=== PATIENT | female | born 1980 | race Caucasian/White ===

== ENCOUNTER → 2016-03-14 | Outpatient (REF) | payer OTHER | LOC: M SFHCLERA 14:02 | PROVIDERS: ATTEND Physician Assistant | DX: N39.0 Urinary tract infection, site not specified (principal) ==

== ENCOUNTER 2016-03-23 20:34 | Emergency (ER) | payer OTHER ==
[2016-03-23] MEDS ORDERED: ACETAMINOPHEN 325 MG TAB As Ordered ONE (21:04)
[2016-03-23] MEDS ORDERED: KETOROLAC 30 MG/ML VIAL (J1885) As Ordered ONE (21:04)
[2016-03-23 21:48] LABS: BASO % 0.1 % (0.0-1.0); EOS # 0.2 K/mm3 (0.0-0.50); EOS % 1.3 % (0.0-3.0); LARGE UNSTAINED CELL # 0.1 K/mm3 (0.0-0.4); LARGE UNSTAINED CELL % 0.5 % (0.0-4.0); LYMPH # 0.4 K/mm3 (1.5-4.5); LYMPH % 3.2 % (24.0-44.0); MEAN CORPUSCULAR HEMOGLOBIN 27.8 pg (27.0-33.0); MEAN CORPUSCULAR HGB CONC 34.4 g/dl (32.0-36.5); MONO # 0.4 K/mm3 (0.0-0.8); MONO % 2.8 % (0.0-5.0); NEUTROPHILS # 12.7 K/mm3 (1.8-7.7); NEUTROPHILS % 92.1 % (36.0-66.0); PLATELET COUNT, AUTOMATED 266 k/mm3 (150-450); RED CELL DISTRIBUTION WIDTH 12.9 % (11.5-14.5); WHITE BLOOD COUNT 13.8 K/mm3 (4.0-10.0)
[2016-03-23 21:58] LABS: ALBUMIN 3.9 GM/DL (3.2-5.2); ALBUMIN/GLOBULIN RATIO 0.93 (1.00-1.93); ALKALINE PHOSPHATASE 80 U/L (45-117); ALT/SGPT 23 U/L (12-78); ANION GAP 9 MEQ/L (8-16); AST/SGOT 11 U/L (15-37); BILIRUBIN,DIRECT 0.1 MG/DL (0.0-0.2); BILIRUBIN,TOTAL 0.7 MG/DL (0.2-1.0); BLOOD UREA NITROGEN 11 MG/DL (7-18); CARBON DIOXIDE LEVEL 29 MEQ/L (21-32); CHLORIDE LEVEL 99 MEQ/L (98-107); CREATININE FOR GFR 0.79 MG/DL (0.55-1.02); GLOMERULAR FILTRATION RATE > 60.0 (>60); GLUCOSE, FASTING 113 MG/DL (70-105); SODIUM LEVEL 137 MEQ/L (136-145); TOTAL PROTEIN 8.1 GM/DL (6.4-8.2)
[2016-03-23] MEDS ORDERED: POTASSIUM CHLORIDE 10 MEQ SR TABLET As Ordered ONE (23:09)
[2016-03-23] MEDS ORDERED: ISOVUE-370 76% 100ML VIAL (Q9967) As Ordered ONE (23:33)
--- NOTE | 2016-03-24 01:20 | REPUSA ---
CLINICAL HISTORY: Abdominal pain. TECHNIQUE: Multiple axial, sagittal and coronal CT images were obtained through the abdomen and pelvi s after administration of intravenous contrast material. COMMENTS: The liver is of uniform attenuation without mass or defect. There is no intra or extrahepatic biliary ductal dilatation. The spleen is normal. The gallbladder is within normal limits. The pancreas is of normal contour and attenuation characteristics. There is no evidence of adrenal mass. Both kidneys demonstrate prompt and equal nephrograms. The kidneys are normal in size, shape and conf iguration. There is no evidence of renal or ureteral mass. No renal or ureteral calculi are identifie d. There is no hydroureter or hydronephrosis. No evidence for appendicitis. There is no bowel wall thickening. No evidence for small or large jignesh l obstruction. Fluid filled mildly dilated small bowels in the pelvis. There is no evidence of intrinsic or extrinsic bladder mass. There is small amount of free pelvic flu id. 4.2 cm left ovarian cyst. Images of the lung bases show no evidence of pleural or parenchymal mass. There are no pleural effusi ons. The bony structures are free of lytic or blastic lesions. IMPRESSION: Left ovarian cyst. Fluid filled mildly dilated small bowel loops in the pelvis. Probably mild ileus versus developing en teritis. Mildly thickened bladder. Thank you for your kind referral of this patient.
--- NOTE | 2016-03-24 03:01 | EDDOCDS ---
Nurse's Notes [facility] Name: Camryn Dennis Age: 36 yrs Sex: Female : 1980 Arrival Date: 03/23/2016 Time: 20:34 Bed 1 Private MD: NO PRIMARY PHYSICIAN, . Diagnosis: Viral agents as the cause of diseases classified elsewhere Presentation: 03/23 20:39 Presenting complaint: Patient states: Racing heart began this morning. SOB. kmg1 Uncomfortable. Fever began this afternoon. Took naproxen this morning. Adult Sepsis Screening: The patient does not have new or worsening altered mentation. Patient's respiratory rate is less than 22. Systolic blood pressure is greater than 100. Patient has a qSOFA score of 0- Negative Sepsis Screen. Suicide/Homicide risk assessment- the patient denies having any suicidal and/or homicidal ideations and does not present with any other emotional, behavioral or mental health complaints. 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 Transition of care: patient was not received from another setting of care. 20:39 Acuity: OSCAR Level 3 [facility] 20:39 Method Of Arrival: Walkin/Carried/Asstd [facility] Triage Assessment: 20:44 General: Appears ill, Behavior is appropriate for age, cooperative, pleasant. Pain: [facility] Location: epigastric area Pain currently is 6 out of 10 on a pain scale. Quality of pain is described as. HIV screening NA for this visit Offered previously. Neurological: No deficits noted. Level of Consciousness is awake, alert. Cardiovascular: Reports racing heart. Respiratory: Reports shortness of breath. OPERATIONS MANAGER/COORDINATOR: 20:44 LMP 03/01/2016 [facility] Historical: - Allergies: No known drug Allergies; - Home Meds: 1. naproxen 500 mg Oral tab 1 tab 2 times per day (Last dose: 03/23/2016 09:00) 2. chlorthalidone 25 mg Oral tab 1 tab once daily (Last dose: 03/23/2016) 3. cetirizine 10 mg oral tab 1 tab once daily (Last dose: 03/23/2016) 4. Macrobid 100 mg Oral cap 1 cap every 12 hours took last dose of this med this morning for Bacterial Urinary Tract Infection (Last dose: 03/23/2016 09:00) - PMHx: Plantar Fasciitis; Hypertension; Obesity; - PSHx: Tubal ligation; Hernia repair- Umbilical; - Social history: Smoking status: Patient states was never smoker of tobacco. No barriers to communication noted, The patient speaks fluent Mosotho, Speaks appropriately for age. - Family history: Not pertinent. - : The pt / caregiver states he / she is not on anticoagulants. Home medication list is obtained from the patient. - Exposure Risk Screening:: None identified. Screenin:27 Screening information is obtained from the patient. Fall risk: No risks identified. js15 Assistance ADL's: requires no assistance with activities of daily living. Abuse/DV Screen: The patient / caregiver reports he/she is: not in a situation that causes fear, pain or injury. Nutritional screening: No deficits noted. Advance Directives: There is no active DNR order. home support is adequate. Assessment: 21:27 General: Appears uncomfortable, Behavior is anxious, cooperative. Pain: Location: js15 mid-sternal area and abdomen and epigastric area Pain currently is 7 out of 10 on a pain scale. Neurological: Level of Consciousness is awake, alert, obeys commands, Oriented to person, place, time. Cardiovascular: Capillary refill < 3 seconds Rhythm is sinus tachycardia. Respiratory: Airway is patent Respiratory effort is even, labored, Respiratory pattern is regular, symmetrical, tachypnea Breath sounds are clear bilaterally. Derm: Skin is dry, Skin is pink, Skin temperature is hot. 22:33 Reassessment: Patient appears in no apparent distress at this time. Pt resting on js15 stretcher, at bedside; respirations even and unlabored; skin pink, warm, dry. 23:30 Reassessment: Patient appears in no apparent distress at this time. Resting on js15 stretcher, eyes open. states pain 7/10 in epigastric area; respirations even and unlabored; skin pink, warm, dry, cardiac rhythm is sinus tach. 03/24 00:40 General: Appears in no apparent distress, Behavior is appropriate for age, cooperative. js15 Pain: Location: mid-sternal area and epigastric area Pain currently is 6 out of 10 on a pain scale. Neurological: Level of Consciousness is awake, alert, obeys commands, Oriented to person, place, time. Respiratory: Airway is patent Respiratory effort is even, unlabored, Respiratory pattern is regular, symmetrical. Derm: Skin is pink, warm & dry. 01:45 Reassessment: Patient appears in no apparent distress at this time. Pt resting on js15 stretcher with eyes closed; respirations even and unlabored; family at bedside; respirations even and unlabored; skin pink, warm, dry; will continue to monitor. 02:56 Reassessment: Patient appears in no apparent distress at this time. Patient states js15 feeling better. Patient states symptoms have improved. Pt sitting up on stretcher, awake and alert; respirations even and unlabored; skin pink, warm, dry. Vital Signs: 03/23 20:36 BP 153 / 87; Pulse 158; Resp 18 S; Temp 102.5(O); Pulse Ox 95% on R/A; Weight 127.01 kg gr2 (R); Height 5 ft. 6 in. (167.64 cm) (R); Pain 5/10; 20:52 BP 136 / 96 (auto/); js15 20:53 Pulse 149 MON; Pulse Ox 94% ; js15 21:15 BP 173 / 104 (auto/); js15 21:15 Pulse 136 MON; Pulse Ox 95% ; js15 21:18 BP 169 / 102 (auto/); js15 21:19 Pulse 131 MON; Pulse Ox 94% ; js15 21:39 BP 163 / 87 (auto/); js15 21:39 Pulse 129 MON; Pulse Ox 92% ; js15 21:44 Pulse 126 MON; Pulse Ox 92% ; js15 21:45 BP 160 / 86 (auto/); js15 21:57 Pulse 124 MON; Pulse Ox 93% ; js15 22:00 BP 161 / 86 (auto/); js15 22:02 Pulse 121 MON; Pulse Ox 93% ; js15 22:13 Pulse 117 MON; Pulse Ox 95% ; js15 22:15 Temp 99.5(O); js15 22:15 BP 165 / 81 (auto/); js15 22:15 Pulse 117 MON; Pulse Ox 95% ; js15 22:30 BP 165 / 89 (auto/); js15 22:31 Pulse 115 MON; Pulse Ox 94% ; js15 23:00 BP 151 / 77 (auto/); js15 23:00 Pulse 116 MON; Pulse Ox 96% ; js15 23:30 BP 182 / 90 (auto/); js15 23:30 Pulse 108 MON; Pulse Ox 96% ; js15 03/24 00:00 BP 155 / 83 (auto/); js15 00:11 Pulse 125 MON; Pulse Ox 86% ; js15 00:30 BP 171 / 102 (auto/); js15 00:30 Pulse 107 MON; Pulse Ox 96% ; js15 00:52 BP 140 / 86 (auto/); js15 00:52 Pulse 111 MON; Pulse Ox 97% ; js15 01:00 BP 148 / 94 (auto/); js15 01:00 Pulse 109 MON; Pulse Ox 97% ; js15 01:15 BP 152 / 93 (auto/); js15 01:15 Pulse 108 MON; Pulse Ox 97% ; js15 01:45 BP 124 / 65 (auto/); js15 01:45 Pulse 112 MON; Pulse Ox 97% ; js15 02:00 BP 126 / 91 (auto/); js15 02:00 Pulse 111 MON; Pulse Ox 98% ; js15 02:15 BP 136 / 89 (auto/); 15 02:15 Pulse 108 MON; Pulse Ox 99% ; 15 02:24 BP 153 / 85 LA Sitting (auto/reg); Pulse 107 MON; Resp 20 S; Temp 98.6(TE); Pulse Ox cln 99% on 2 lpm NC; Pain 05/10; 03/23 20:36 Body Mass Index 45.19 (127.01 kg, 167.64 cm) gr2 Vitals: 03/23 20:36 Log In Time: March 23, 2016 at 20:36. RN notified that patient meets Red Flag gr2 criteria. ED Course: 20:35 Patient visited by Wilma Barajas. gr2 20:35 NO PRIMARY PHYSICIAN, . is Private Physician. gr2 20:35 Patient moved to Waiting gr2 20:37 Patient visited by Wilma Barajas. gr2 20:37 Patient visited by Wilma Barajas. gr2 20:38 Patient moved to Pre RCE gr2 20:41 Triage Initiated kmg1 20:49 Patient moved to 1 kmg1 20:53 Patient visited by Tsering Hardy PCA. soo 20:53 Karlos De Souza DO is Attending Physician. cs11 20:53 Patient visited by Karlos De Souza DO. cs11 20:53 Pt greeted and oriented to ED. Patient advised of names of staff involved in care, soo location of call [place], wait times and NPO status. Accompanied by Significant Other, Patient has correct armband on for positive identification. Placed in gown. Bed in low position. Call light in reach. Side rails up X2. design engineer agricultural equipment on. Pulse ox on. NIBP on. 21:15 Inserted saline lock: 18 gauge in right antecubital area The patient tolerated the js15 procedure well. 21:27 The patient / caregiver is instructed regarding the plan of care and ED course. js15 21:57 Patient visited by Tsering Hardy PCA. soo 22:02 [facility] Payment Agreement was scanned into [employer] and attached to record. ks16 22:42 Patient visited by Annemarie Tolentino RN. js15 23:47 Patient visited by Tsering Hardy PCA. soo 03/24 00:49 Patient visited by Annemarie Tolentino RN. js15 01:34 CT ABD & PELVIS: IV Contrast Only Returned. EDMS 01:57 Patient visited by Tsering Hardy PCA. soo 02:25 Patient visited by Brina Scott PCA. cln 02:59 Discontinued IV lock intact, bleeding controlled, pressure dressing applied, No js15 redness/swelling at site. 02:59 No procedures done that require assistance. Administered Medications: 03/23 21:20 Drug: NS 0.9% 1000 ml [sodium chloride 0.9 % intravenous solution] Route: IV; Rate: js15 bolus; Site: right antecubital; 22:12 Follow up: IV Status: Completed infusion; IV Intake: 1000ml 21:20 Drug: Acetaminophen 975 mg [acetaminophen 325 mg tablet (3 tabs)] Route: PO; 21:20 Drug: ketorolac 30 mg [ketorolac 30 mg/mL (1 mL) injection solution (1 mL)] Route: IVP; Site: right antecubital; 22:00 Follow up: Response: No Adverse Reaction 22:12 Drug: NS 0.9% 1000 ml [sodium chloride 0.9 % intravenous solution] Route: IV; Rate: js15 bolus; Site: right antecubital; 03/24 00:00 Follow up: IV Status: Completed infusion; IV Intake: 1000ml 15 03/23 23:13 Drug: Potassium Chloride 40 mEq [potassium chloride ER 10 mEq tablet,extended release js15 (4 tabs)] Route: PO; Intake: 22:12 IV: 1000.00ml; Total: 1000.00ml. js15 03/24 00:00 IV: 1000.00ml; Total: 2000.00ml. js15 Order Results: Lab Order: Lactic Acid (Melton tube on ice); SPEC'M 03/23/16 21:15 Test: LACTIC ACID LEVEL, LACTATE; Value: 1.4; Range: 0.4-2.0; Units: MMOL/L; Status: F Lab Order: CBC with Diff; SPEC'M 03/23/16 21:15 Test: WHITE BLOOD COUNT; Value: 13.8; Range: 4.0-10.0; Abnormal: Above high normal; Units: K/mm3; Status: F Test: RED BLOOD COUNT; Value: 5.24; Range: 4.00-5.40; Units: M/mm3; Status: F Test: HEMOGLOBIN; Value: 14.6; Range: 12.0-16.0; Units: g/dl; Status: F Test: HEMATOCRIT; Value: 42.5; Range: 36.0-47.0; Units: %; Status: F Test: MEAN CORPUSCULAR VOLUME; Value: 81.0; Range: 80.0-96.0; Units: fl; Status: F Test: MEAN CORPUSCULAR HEMOGLOBIN; Value: 27.8; Range: 27.0-33.0; Units: pg; Status: F Test: MEAN CORPUSCULAR HGB CONC; Value: 34.4; Range: 32.0-36.5; Units: g/dl; Status: F Test: RED CELL DISTRIBUTION WIDTH; Value: 12.9; Range: 11.5-14.5; Units: %; Status: F Test: PLATELET COUNT, AUTOMATED; Value: 266; Range: 150-450; Units: k/mm3; Status: F Test: NEUTROPHILS %; Value: 92.1; Range: 36.0-66.0; Abnormal: Above high normal; Units: %; Status: F Test: LYMPH %; Value: 3.2; Range: 24.0-44.0; Abnormal: Below low normal; Units: %; Status: F Test: MONO %; Value: 2.8; Range: 0.0-5.0; Units: %; Status: F Test: EOS %; Value: 1.3; Range: 0.0-3.0; Units: %; Status: F Test: BASO %; Value: 0.1; Range: 0.0-1.0; Units: %; Status: F Test: LARGE UNSTAINED CELL %; Value: 0.5; Range: 0.0-4.0; Units: %; Status: F Test: NEUTROPHILS #; Value: 12.7; Range: 1.8-7.7; Abnormal: Above high normal; Units: K/mm3; Status: F Test: LYMPH #; Value: 0.4; Range: 1.5-4.5; Abnormal: Below low normal; Units: K/mm3; Status: F Test: MONO #; Value: 0.4; Range: 0.0-0.8; Units: K/mm3; Status: F Test: EOS #; Value: 0.2; Range: 0.0-0.50; Units: K/mm3; Status: F Test: BASO #; Value: 0.0; Range: 0.0-0.2; Units: K/mm3; Status: F Test: LARGE UNSTAINED CELL #; Value: 0.1; Range: 0.0-0.4; Units: K/mm3; Status: F Lab Order: MED Profile; SPEC'M 03/23/16 21:15 Test: GLUCOSE, FASTING; Value: 113; Range: 70-105; Abnormal: Above high normal; Units: MG/DL; Status: F Test: BLOOD UREA NITROGEN; Value: 11; Range: 7-18; Units: MG/DL; Status: F Test: CREATININE FOR GFR; Value: 0.79; Range: 0.55-1.02; Units: MG/DL; Status: F Test: GLOMERULAR FILTRATION RATE; Value: > 60.0; Range: >60; Status: F Test: SODIUM LEVEL; Value: 137; Range: 136-145; Units: MEQ/L; Status: F Test: POTASSIUM SERUM; Value: 3.0; Range: 3.5-5.1; Abnormal: Below low normal; Units: MEQ/L; Status: F Test: CHLORIDE LEVEL; Value: 99; Range: 98-107; Units: MEQ/L; Status: F Test: CARBON DIOXIDE LEVEL; Value: 29; Range: 21-32; Units: MEQ/L; Status: F Test: ANION GAP; Value: 9; Range: 8-16; Units: MEQ/L; Status: F Test: CALCIUM LEVEL; Value: 9.0; Range: 8.5-10.1; Units: MG/DL; Status: F Test Note: ; Units are mL/min/1.73 m2 Chronic Kidney Disease Staging per NKF: Stage I & II GFR >=60 Normal to Mildly Decreased Stage III GFR 30-59 Moderately Decreased Stage IV GFR 15-29 Severely Decreased Stage V GFR <15 Very Little GFR Left ESRD GFR <15 on CERTIFIED NOVELL ENGINEER Lab Order: Liver Profile; SPEC'M 03/23/16 21:15 Test: AST/SGOT; Value: 11; Range: 15-37; Abnormal: Below low normal; Units: U/L; Status: F Test: ALT/SGPT; Value: 23; Range: 12-78; Units: U/L; Status: F Test: ALKALINE PHOSPHATASE; Value: 80; Range: 45-117; Units: U/L; Status: F Test: BILIRUBIN,TOTAL; Value: 0.7; Range: 0.2-1.0; Units: MG/DL; Status: F Test: BILIRUBIN,DIRECT; Value: 0.1; Range: 0.0-0.2; Units: MG/DL; Status: F Test: TOTAL PROTEIN; Value: 8.1; Range: 6.4-8.2; Units: GM/DL; Status: F Test: ALBUMIN; Value: 3.9; Range: 3.2-5.2; Units: GM/DL; Status: F Test: ALBUMIN/GLOBULIN RATIO; Value: 0.93; Range: 1.00-1.93; Abnormal: Below low normal; Status: F Lab Order: Urinalysis; SPEC'M 03/23/16 22:44 Test: APPEARANCE, URINE; Value: CLEAR; Range: CLEAR; Status: F Test: COLOR, URINE; Value: YELLOW; Range: YELLOW; Status: F Test: PH,URINE; Value: 6.0; Range: 5.0-9.0; Units: UNITS; Status: F Test: SPECIFIC GRAVITY URINE AUTO; Value: 1.010; Range: 1.002-1.035; Status: F Test: PROTEIN, URINE AUTO; Value: NEGATIVE; Range: NEGATIVE; Units: mg/dL; Status: F Test: GLUCOSE, URINE (UA) AUTO; Value: NEGATIVE; Range: NEGATIVE; Units: mg/dL; Status: F Test: KETONE, URINE AUTO; Value: NEGATIVE; Range: NEGATIVE; Units: mg/dL; Status: F Test: UROBILINOGEN, URINE AUTO; Value: 0.2; Range: 0.0-2.0; Units: mg/dL; Status: F Test: BILIRUBIN, URINE AUTO; Value: NEGATIVE; Range: NEGATIVE; Status: F Test: NITRITE, URINE AUTO; Value: NEGATIVE; Range: NEGATIVE; Status: F Test: LEUKOCYTE ESTERASE, URINE AUTO; Value: NEGATIVE; Range: NEGATIVE; Status: F Test: BLOOD, URINE BLOOD; Value: NEGATIVE; Range: NEGATIVE; Status: F Test: WBC, URINE AUTO; Value: 0; Range: 0-3; Units: /HPF; Status: F Test: RBC, URINE AUTO; Value: 1; Range: 0-3; Units: /HPF; Status: F Test: BACTERIA, URINE AUTO; Value: NEGATIVE; Range: NEGATIVE; Status: F Test: SQUAMOUS EPITHELIAL CELL UR AU; Value: 0; Range: 0-6; Units: /HPF; Status: F Test: HYALINE CAST, URINE AUTO; Value: 0; Range: 0-1; Units: /LPF; Status: F Lab Order: -Influenza A&B Rapid Antigen - Nose; SPEC'M 03/23/16 21:17 Test: INFLUENZA A RAPID SCR by ICA; Value: INFLUENZA A RESULTS NEGATIVE; Status: F Test: INFLUENZA A RAPID SCR by ICA; Value: Comments:; Status: F Test: INFLUENZA B RAPID SCR by ICA; Value: INFLUENZA B RESULTS NEGATIVE; Status: F Test Note: ; The Influenza test is a direct rapid immunoassay for the qualitative detection of Influenza viral antigen. Cell culture (Viral Culture) testing should be considered to confirm NEGATIVE results and to assist in detecting other viruses that can provide similar clinical symptoms. Please contact the lab within 24 hours ([phone] if confirmatory testing is desired. Radiology Order: CT ABD & PELVIS: IV Contrast Only Test: CT ABD & PELVIS: IV Contrast Only REASON FOR EXAMINATION: Abdomen Pain; ; CLINICAL HISTORY: Abdominal pain.; TECHNIQUE: Multiple axial, sagittal and coronal CT images were obtained through the abdomen and pelvi; s after administration of intravenous contrast material.; COMMENTS:; The liver is of uniform attenuation without mass or defect. There is no intra or extrahepatic biliary; ductal dilatation. The spleen is normal. The gallbladder is within normal limits. The pancreas is of; normal contour and attenuation characteristics. There is no evidence of adrenal mass.; Both kidneys demonstrate prompt and equal nephrograms. The kidneys are normal in size, shape and conf; iguration. There is no evidence of renal or ureteral mass. No renal or ureteral calculi are identifie; d. There is no hydroureter or hydronephrosis.; No evidence for appendicitis. There is no bowel wall thickening. No evidence for small or large jignesh; l obstruction. Fluid filled mildly dilated small bowels in the pelvis.; There is no evidence of intrinsic or extrinsic bladder mass. There is small amount of free pelvic flu; id. 4.2 cm left ovarian cyst.; Images of the lung bases show no evidence of pleural or parenchymal mass. There are no pleural effusi; ons.; The bony structures are free of lytic or blastic lesions.; IMPRESSION:; Left ovarian cyst.; Fluid filled mildly dilated small bowel loops in the pelvis. Probably mild ileus versus developing en; teritis.; Mildly thickened bladder.; Thank you for your kind referral of this patient.; ; Outcome: 02:17 Discharge ordered by Provider. cs11 02:59 Discharge Assessment: Patient awake, alert and oriented x 3. No cognitive and/or js15 functional deficits noted. Patient verbalized understanding of disposition instructions. patient administered narcotics - no. The following High Risk Discharge criteria are identified: None. Discharged to home ambulatory, with significant other. Condition: stable. Condition: improved. Discharge instructions given to patient, Instructed on discharge instructions, follow up and referral plans. Demonstrated understanding of instructions, Pt was receptive of discharge instructions/ teaching. CT Study completed. Property sent home with patient. 03:01 Patient left the ED. js15 Signatures: Dispatcher [facility] EDOR Laurel Mireles, RN RN kmg1 Tsering Hardy, MEDICATION ADMINISTRATION PROFESSIONAL MEDICATION ADMINISTRATION PROFESSIONAL Karlos Samano DO cs11 Wilma Barajas gr2 Annemarie Tolentino,RN RN js15 Eliana Ortiz, Catarino Reg ks16 Tyler, Brina, MEDICATION ADMINISTRATION PROFESSIONAL MEDICATION ADMINISTRATION PROFESSIONAL cln THAOD
--- NOTE | 2016-03-24 03:01 | EDDOCDS ---
Physician Documentation [facility] Name: Camryn Dennis Age: 36 yrs Sex: Female : 1980 Arrival Date: 03/23/2016 Time: 20:34 Bed 1 Private MD: NO PRIMARY PHYSICIAN, . Disposition: 03/24/16 02:17 Discharged to Home/Self Care. Impression: Viral agents as the cause of diseases classified elsewhere. - Condition is Stable. - Medication Reconciliation, Local Pharmacy Hours form. - Follow up: Private Physician; When: Call to arrange an appointment; Reason: Recheck today's complaints. - Problem is new. - Symptoms have improved. Historical: - Allergies: No known drug Allergies; - Home Meds: 1. naproxen 500 mg Oral tab 1 tab 2 times per day (Last dose: 03/23/2016 09:00) 2. chlorthalidone 25 mg Oral tab 1 tab once daily (Last dose: 03/23/2016) 3. cetirizine 10 mg oral tab 1 tab once daily (Last dose: 03/23/2016) 4. Macrobid 100 mg Oral cap 1 cap every 12 hours took last dose of this med this morning for Bacterial Urinary Tract Infection (Last dose: 03/23/2016 09:00) - PMHx: Plantar Fasciitis; Hypertension; Obesity; - PSHx: Tubal ligation; Hernia repair- Umbilical; - Social history: Smoking status: Patient states was never smoker of tobacco. No barriers to communication noted, The patient speaks fluent Irish, Speaks appropriately for age. - Family history: Not pertinent. - : The pt / caregiver states he / she is not on anticoagulants. Home medication list is obtained from the patient. - Exposure Risk Screening:: None identified. 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 6 in. (167.64 cm) (R); Pain 5/10; 20:52 BP 136 / 96 (auto/); js15 20:53 Pulse 149 MON; Pulse Ox 94% ; js15 21:15 BP 173 / 104 (auto/); 15 21:15 Pulse 136 MON; Pulse Ox 95% ; js15 21:18 BP 169 / 102 (auto/); 15 21:19 Pulse 131 MON; Pulse Ox 94% ; 15 21:39 BP 163 / 87 (auto/); 15 21:39 Pulse 129 MON; Pulse Ox 92% ; 15 21:44 Pulse 126 MON; Pulse Ox 92% ; 15 21:45 BP 160 / 86 (auto/); 15 21:57 Pulse 124 MON; Pulse Ox 93% ; 15 22:00 BP 161 / 86 (auto/); 15 22:02 Pulse 121 MON; Pulse Ox 93% ; 15 22:13 Pulse 117 MON; Pulse Ox 95% ; 15 22:15 Temp 99.5(O); 15 22:15 BP 165 / 81 (auto/); 15 22:15 Pulse 117 MON; Pulse Ox 95% ; 22:30 BP 165 / 89 (auto/); 22:31 Pulse 115 MON; Pulse Ox 94% ; 15 23:00 BP 151 / 77 (auto/); 23:00 Pulse 116 MON; Pulse Ox 96% ; 23:30 BP 182 / 90 (auto/); 15 23:30 Pulse 108 MON; Pulse Ox 96% ; 03/24 00:00 BP 155 / 83 (auto/); 00:11 Pulse 125 MON; Pulse Ox 86% ; 15 00:30 BP 171 / 102 (auto/); 00:30 Pulse 107 MON; Pulse Ox 96% ; 00:52 BP 140 / 86 (auto/); 00:52 Pulse 111 MON; Pulse Ox 97% ; 15 01:00 BP 148 / 94 (auto/); 15 01:00 Pulse 109 MON; Pulse Ox 97% ; 15 01:15 BP 152 / 93 (auto/); 01:15 Pulse 108 MON; Pulse Ox 97% ; 01:45 BP 124 / 65 (auto/); 01:45 Pulse 112 MON; Pulse Ox 97% ; 15 02:00 BP 126 / 91 (auto/); 15 02:00 Pulse 111 MON; Pulse Ox 98% ; 02:15 BP 136 / 89 (auto/); js15 02:15 Pulse 108 MON; Pulse Ox 99% ; js15 02:24 BP 153 / 85 LA Sitting (auto/reg); Pulse 107 MON; Resp 20 S; Temp 98.6(TE); Pulse Ox cln 99% on 2 lpm NC; Pain 05/10; 03/23 20:36 Body Mass Index 45.19 (127.01 kg, 167.64 cm) gr2 MDM: 03/23 21:00 IV Saline Lock ordered. cs11 21:00 NS 0.9% 1000 ml IV at bolus once ordered. cs11 21:00 Acetaminophen Tablet 975 mg PO once ordered. cs11 21:00 -Blood Culture (Adults Only), peripheral from different site, or from device/port/PICC cs11 etc. if present ordered. 21:00 ketorolac 30 mg IVP once ordered. cs11 21:01 -Blood Culture Ordered. EDMS 21:01 Lactic Acid (Melton tube on ice) Ordered. EDMS 21:01 CBC with Diff Ordered. EDMS 21:01 MED Profile Ordered. EDMS 21:01 Liver Profile Ordered. EDMS 21:01 Urinalysis Ordered. EDMS 21:01 Urine Culture Ordered. EDMS 21:02 Chest, 2 View (pa\E\lat) Ordered. EDMS 21:05 -Blood Culture (Adults Only), peripheral from different site, or from device/port/PICC ml3 etc. if present complete. 21:06 BLOOD CULTURES Ordered. EDMS 21:08 -Influenza A&B Rapid Antigen - Nose Ordered. EDMS 21:55 CBC with Diff Reviewed. cs11 21:55 -Influenza A&B Rapid Antigen - Nose Reviewed. cs11 21:56 Vital Signs ordered. cs11 22:01 Financial registration complete. [email or web address] 22:02 [facility] Payment Agreement was scanned into sendwithus and attached to record. ks16 22:12 NS 0.9% 1000 ml IV at bolus once ordered. js15 22:20 MED Profile Reviewed. cs11 22:20 Liver Profile Reviewed. cs11 22:20 Lactic Acid (Melton tube on ice) Reviewed. cs11 22:20 Potassium Chloride Extended Release Tablet 40 mEq PO once ordered. cs11 23:09 Urinalysis Reviewed. cs11 23:14 CT ABD & PELVIS: IV Contrast Only Ordered. EDMS 03/24 02:15 CT ABD & PELVIS: IV Contrast Only Reviewed. cs11 Administered Medications: 03/23 21:20 Drug: NS 0.9% 1000 ml [sodium chloride 0.9 % intravenous solution] Route: IV; Rate: js15 bolus; Site: right antecubital; 22:12 Follow up: IV Status: Completed infusion; IV Intake: 1000ml js15 21:20 Drug: Acetaminophen 975 mg [acetaminophen 325 mg tablet (3 tabs)] Route: PO; js15 21:20 Drug: ketorolac 30 mg [ketorolac 30 mg/mL (1 mL) injection solution (1 mL)] Route: IVP; js15 Site: right antecubital; 22:00 Follow up: Response: No Adverse Reaction js15 22:12 Drug: NS 0.9% 1000 ml [sodium chloride 0.9 % intravenous solution] Route: IV; Rate: js15 bolus; Site: right antecubital; 03/24 00:00 Follow up: IV Status: Completed infusion; IV Intake: 1000ml js15 03/23 23:13 Drug: Potassium Chloride 40 mEq [potassium chloride ER 10 mEq tablet,extended release js15 (4 tabs)] Route: PO; Signatures: Dispatcher [employer] EDLaurel Coles, RN RN kmg1 Wojciech Flores, Patient Clerical Assistant Unit ml3 Karlos De Souza DO DO cs11 Annemarie TolentinoRN RN js15 Eliana Ortiz, Reg Reg ks16 The chart was reviewed and I authenticate all verbal orders and agree with the evaluation and treatment provided.Attachments: 22:02 [facility] Payment Agreement [email or web address] MTDD
--- NOTE | 2016-03-24 16:14 | REP ---
PA and lateral chest: There are no comparisons. The lung ruffin are clear. The cardiac size is normal The herber, mediastinum, and bony thorax are unremarkable. Impression: Negative PA and lateral chest. Signed by Declan Fierro MD 03/24/2016 04:04 P
--- NOTE | 2016-03-26 04:02 | EDDOCDS ---
Nurse's Notes [facility] Name: Camryn Dennis Age: 36 yrs Sex: Female : 1980 Arrival Date: 03/23/2016 Time: 20:34 Bed 1 Private MD: NO PRIMARY PHYSICIAN, . Diagnosis: Viral agents as the cause of diseases classified elsewhere Presentation: 03/23 20:39 Presenting complaint: Patient states: Racing heart began this morning. SOB. kmg1 Uncomfortable. Fever began this afternoon. Took naproxen this morning. Adult Sepsis Screening: The patient does not have new or worsening altered mentation. Patient's respiratory rate is less than 22. Systolic blood pressure is greater than 100. Patient has a qSOFA score of 0- Negative Sepsis Screen. Suicide/Homicide risk assessment- the patient denies having any suicidal and/or homicidal ideations and does not present with any other emotional, behavioral or mental health complaints. 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 Transition of care: patient was not received from another setting of care. 20:39 Acuity: OSCAR Level 3 [facility] [place] 20:39 Method Of Arrival: Walkin/Carried/Asstd [facility] [place] Triage Assessment: 20:44 General: Appears ill, Behavior is appropriate for age, cooperative, pleasant. Pain: [facility] [place] Location: epigastric area Pain currently is 6 out of 10 on a pain scale. Quality of pain is described as. HIV screening NA for this visit Offered previously. Neurological: No deficits noted. Level of Consciousness is awake, alert. Cardiovascular: Reports racing heart. Respiratory: Reports shortness of breath. NEWS EDITOR: 20:44 LMP 03/01/2016 [facility] [place] Historical: - Allergies: No known drug Allergies; - Home Meds: 1. naproxen 500 mg Oral tab 1 tab 2 times per day (Last dose: 03/23/2016 09:00) 2. chlorthalidone 25 mg Oral tab 1 tab once daily (Last dose: 03/23/2016) 3. cetirizine 10 mg oral tab 1 tab once daily (Last dose: 03/23/2016) 4. Macrobid 100 mg Oral cap 1 cap every 12 hours took last dose of this med this morning for Bacterial Urinary Tract Infection (Last dose: 03/23/2016 09:00) - PMHx: Plantar Fasciitis; Hypertension; Obesity; - PSHx: Tubal ligation; Hernia repair- Umbilical; - Social history: Smoking status: Patient states was never smoker of tobacco. No barriers to communication noted, The patient speaks fluent Greek, Speaks appropriately for age. - Family history: Not pertinent. - : The pt / caregiver states he / she is not on anticoagulants. Home medication list is obtained from the patient. - Exposure Risk Screening:: None identified. Screenin:27 Screening information is obtained from the patient. Fall risk: No risks identified. js15 Assistance ADL's: requires no assistance with activities of daily living. Abuse/DV Screen: The patient / caregiver reports he/she is: not in a situation that causes fear, pain or injury. Nutritional screening: No deficits noted. Advance Directives: There is no active DNR order. home support is adequate. Assessment: 21:27 General: Appears uncomfortable, Behavior is anxious, cooperative. Pain: Location: js15 mid-sternal area and abdomen and epigastric area Pain currently is 7 out of 10 on a pain scale. Neurological: Level of Consciousness is awake, alert, obeys commands, Oriented to person, place, time. Cardiovascular: Capillary refill < 3 seconds Rhythm is sinus tachycardia. Respiratory: Airway is patent Respiratory effort is even, labored, Respiratory pattern is regular, symmetrical, tachypnea Breath sounds are clear bilaterally. Derm: Skin is dry, Skin is pink, Skin temperature is hot. 22:33 Reassessment: Patient appears in no apparent distress at this time. Pt resting on js15 stretcher, at bedside; respirations even and unlabored; skin pink, warm, dry. 23:30 Reassessment: Patient appears in no apparent distress at this time. Resting on js15 stretcher, eyes open. states pain 7/10 in epigastric area; respirations even and unlabored; skin pink, warm, dry, cardiac rhythm is sinus tach. 03/24 00:40 General: Appears in no apparent distress, Behavior is appropriate for age, cooperative. js15 Pain: Location: mid-sternal area and epigastric area Pain currently is 6 out of 10 on a pain scale. Neurological: Level of Consciousness is awake, alert, obeys commands, Oriented to person, place, time. Respiratory: Airway is patent Respiratory effort is even, unlabored, Respiratory pattern is regular, symmetrical. Derm: Skin is pink, warm & dry. 01:45 Reassessment: Patient appears in no apparent distress at this time. Pt resting on js15 stretcher with eyes closed; respirations even and unlabored; family at bedside; respirations even and unlabored; skin pink, warm, dry; will continue to monitor. 02:56 Reassessment: Patient appears in no apparent distress at this time. Patient states js15 feeling better. Patient states symptoms have improved. Pt sitting up on stretcher, awake and alert; respirations even and unlabored; skin pink, warm, dry. Vital Signs: 03/23 20:36 BP 153 / 87; Pulse 158; Resp 18 S; Temp 102.5(O); Pulse Ox 95% on R/A; Weight 127.01 kg gr2 (R); Height 5 ft. 6 in. (167.64 cm) (R); Pain 5/10; 20:52 BP 136 / 96 (auto/); js15 20:53 Pulse 149 MON; Pulse Ox 94% ; js15 21:15 BP 173 / 104 (auto/); js15 21:15 Pulse 136 MON; Pulse Ox 95% ; js15 21:18 BP 169 / 102 (auto/); js15 21:19 Pulse 131 MON; Pulse Ox 94% ; js15 21:39 BP 163 / 87 (auto/); js15 21:39 Pulse 129 MON; Pulse Ox 92% ; js15 21:44 Pulse 126 MON; Pulse Ox 92% ; js15 21:45 BP 160 / 86 (auto/); js15 21:57 Pulse 124 MON; Pulse Ox 93% ; js15 22:00 BP 161 / 86 (auto/); js15 22:02 Pulse 121 MON; Pulse Ox 93% ; js15 22:13 Pulse 117 MON; Pulse Ox 95% ; js15 22:15 Temp 99.5(O); js15 22:15 BP 165 / 81 (auto/); js15 22:15 Pulse 117 MON; Pulse Ox 95% ; js15 22:30 BP 165 / 89 (auto/); js15 22:31 Pulse 115 MON; Pulse Ox 94% ; js15 23:00 BP 151 / 77 (auto/); js15 23:00 Pulse 116 MON; Pulse Ox 96% ; js15 23:30 BP 182 / 90 (auto/); js15 23:30 Pulse 108 MON; Pulse Ox 96% ; js15 03/24 00:00 BP 155 / 83 (auto/); js15 00:11 Pulse 125 MON; Pulse Ox 86% ; js15 00:30 BP 171 / 102 (auto/); js15 00:30 Pulse 107 MON; Pulse Ox 96% ; js15 00:52 BP 140 / 86 (auto/); js15 00:52 Pulse 111 MON; Pulse Ox 97% ; js15 01:00 BP 148 / 94 (auto/); js15 01:00 Pulse 109 MON; Pulse Ox 97% ; js15 01:15 BP 152 / 93 (auto/); js15 01:15 Pulse 108 MON; Pulse Ox 97% ; js15 01:45 BP 124 / 65 (auto/); js15 01:45 Pulse 112 MON; Pulse Ox 97% ; js15 02:00 BP 126 / 91 (auto/); js15 02:00 Pulse 111 MON; Pulse Ox 98% ; js15 02:15 BP 136 / 89 (auto/); 15 02:15 Pulse 108 MON; Pulse Ox 99% ; 15 02:24 BP 153 / 85 LA Sitting (auto/reg); Pulse 107 MON; Resp 20 S; Temp 98.6(TE); Pulse Ox cln 99% on 2 lpm NC; Pain 05/10; 03/23 20:36 Body Mass Index 45.19 (127.01 kg, 167.64 cm) gr2 Vitals: 03/23 20:36 Log In Time: March 23, 2016 at 20:36. RN notified that patient meets Red Flag gr2 criteria. ED Course: 20:35 Patient visited by Wilma Barajas. gr2 20:35 NO PRIMARY PHYSICIAN, . is Private Physician. gr2 20:35 Patient moved to Waiting gr2 20:37 Patient visited by Wilma Barajas. gr2 20:37 Patient visited by Wilma Barajas. gr2 20:38 Patient moved to Pre RCE gr2 20:41 Triage Initiated kmg1 20:49 Patient moved to 1 kmg1 20:53 Patient visited by Tsering Hardy PCA. soo 20:53 Karlos De Souza DO is Attending Physician. cs11 20:53 Patient visited by Karlos De Souza DO. cs11 20:53 Pt greeted and oriented to ED. Patient advised of names of staff involved in care, soo location of call [place], wait times and NPO status. Accompanied by Significant Other, Patient has correct armband on for positive identification. Placed in gown. Bed in low position. Call light in reach. Side rails up X2. coupon redemption clerk on. Pulse ox on. NIBP on. 21:15 Inserted saline lock: 18 gauge in right antecubital area The patient tolerated the js15 procedure well. 21:27 The patient / caregiver is instructed regarding the plan of care and ED course. js15 21:57 Patient visited by Tsering Hardy PCA. soo 22:02 [facility] Payment Agreement was scanned into [employer] and attached to record. ks16 22:42 Patient visited by Annemarie Tolentino,RYLEY. js15 23:47 Patient visited by Tsering Hardy PCA. soo 03/24 00:49 Patient visited by Annemarie Tolentino RN. js15 01:34 CT ABD & PELVIS: IV Contrast Only Returned. EDMS 01:57 Patient visited by Tsering Hardy PCA. soo 02:25 Patient visited by Brina Scott PCA. cln 02:59 Discontinued IV lock intact, bleeding controlled, pressure dressing applied, No js15 redness/swelling at site. 02:59 No procedures done that require assistance. js15 16:49 Chest, 2 View (pa\E\lat) Returned. EDMS 17:04 T-Sheet-- Draft Copy was scanned into [employer] and attached to record. klr Administered Medications: 03/23 21:20 Drug: NS 0.9% 1000 ml [sodium chloride 0.9 % intravenous solution] Route: IV; Rate: js15 bolus; Site: right antecubital; 22:12 Follow up: IV Status: Completed infusion; IV Intake: 1000ml js15 21:20 Drug: Acetaminophen 975 mg [acetaminophen 325 mg tablet (3 tabs)] Route: PO; js15 21:20 Drug: ketorolac 30 mg [ketorolac 30 mg/mL (1 mL) injection solution (1 mL)] Route: IVP; js15 Site: right antecubital; 22:00 Follow up: Response: No Adverse Reaction js15 22:12 Drug: NS 0.9% 1000 ml [sodium chloride 0.9 % intravenous solution] Route: IV; Rate: js15 bolus; Site: right antecubital; 03/24 00:00 Follow up: IV Status: Completed infusion; IV Intake: 1000ml js15 03/23 23:13 Drug: Potassium Chloride 40 mEq [potassium chloride ER 10 mEq tablet,extended release js15 (4 tabs)] Route: PO; Intake: 22:12 IV: 1000.00ml; Total: 1000.00ml. js15 03/24 00:00 IV: 1000.00ml; Total: 2000.00ml. js15 Order Results: Lab Order: -Blood Culture; SPEC'M 03/23/16 21:15 Test: BLOOD CULTURE; Value: No growth after 24 hours . All specimens observed; Status: F Test: BLOOD CULTURE; Value: for 5 days. Results final at that time.; Status: F Test: BLOOD CULTURE; Value: No Growth after 48 hours. All Specimens observed; Status: F Test: BLOOD CULTURE; Value: for 7 days. Results final at that time.; Status: F Lab Order: Lactic Acid (Melton tube on ice); SPEC'M 03/23/16 21:15 Test: LACTIC ACID LEVEL, LACTATE; Value: 1.4; Range: 0.4-2.0; Units: MMOL/L; Status: F Lab Order: CBC with Diff; SPEC'M 03/23/16 21:15 Test: WHITE BLOOD COUNT; Value: 13.8; Range: 4.0-10.0; Abnormal: Above high normal; Units: K/mm3; Status: F Test: RED BLOOD COUNT; Value: 5.24; Range: 4.00-5.40; Units: M/mm3; Status: F Test: HEMOGLOBIN; Value: 14.6; Range: 12.0-16.0; Units: g/dl; Status: F Test: HEMATOCRIT; Value: 42.5; Range: 36.0-47.0; Units: %; Status: F Test: MEAN CORPUSCULAR VOLUME; Value: 81.0; Range: 80.0-96.0; Units: fl; Status: F Test: MEAN CORPUSCULAR HEMOGLOBIN; Value: 27.8; Range: 27.0-33.0; Units: pg; Status: F Test: MEAN CORPUSCULAR HGB CONC; Value: 34.4; Range: 32.0-36.5; Units: g/dl; Status: F Test: RED CELL DISTRIBUTION WIDTH; Value: 12.9; Range: 11.5-14.5; Units: %; Status: F Test: PLATELET COUNT, AUTOMATED; Value: 266; Range: 150-450; Units: k/mm3; Status: F Test: NEUTROPHILS %; Value: 92.1; Range: 36.0-66.0; Abnormal: Above high normal; Units: %; Status: F Test: LYMPH %; Value: 3.2; Range: 24.0-44.0; Abnormal: Below low normal; Units: %; Status: F Test: MONO %; Value: 2.8; Range: 0.0-5.0; Units: %; Status: F Test: EOS %; Value: 1.3; Range: 0.0-3.0; Units: %; Status: F Test: BASO %; Value: 0.1; Range: 0.0-1.0; Units: %; Status: F Test: LARGE UNSTAINED CELL %; Value: 0.5; Range: 0.0-4.0; Units: %; Status: F Test: NEUTROPHILS #; Value: 12.7; Range: 1.8-7.7; Abnormal: Above high normal; Units: K/mm3; Status: F Test: LYMPH #; Value: 0.4; Range: 1.5-4.5; Abnormal: Below low normal; Units: K/mm3; Status: F Test: MONO #; Value: 0.4; Range: 0.0-0.8; Units: K/mm3; Status: F Test: EOS #; Value: 0.2; Range: 0.0-0.50; Units: K/mm3; Status: F Test: BASO #; Value: 0.0; Range: 0.0-0.2; Units: K/mm3; Status: F Test: LARGE UNSTAINED CELL #; Value: 0.1; Range: 0.0-0.4; Units: K/mm3; Status: F Lab Order: MED Profile; SPEC'M 03/23/16 21:15 Test: GLUCOSE, FASTING; Value: 113; Range: 70-105; Abnormal: Above high normal; Units: MG/DL; Status: F Test: BLOOD UREA NITROGEN; Value: 11; Range: 7-18; Units: MG/DL; Status: F Test: CREATININE FOR GFR; Value: 0.79; Range: 0.55-1.02; Units: MG/DL; Status: F Test: GLOMERULAR FILTRATION RATE; Value: > 60.0; Range: >60; Status: F Test: SODIUM LEVEL; Value: 137; Range: 136-145; Units: MEQ/L; Status: F Test: POTASSIUM SERUM; Value: 3.0; Range: 3.5-5.1; Abnormal: Below low normal; Units: MEQ/L; Status: F Test: CHLORIDE LEVEL; Value: 99; Range: 98-107; Units: MEQ/L; Status: F Test: CARBON DIOXIDE LEVEL; Value: 29; Range: 21-32; Units: MEQ/L; Status: F Test: ANION GAP; Value: 9; Range: 8-16; Units: MEQ/L; Status: F Test: CALCIUM LEVEL; Value: 9.0; Range: 8.5-10.1; Units: MG/DL; Status: F Test Note: ; Units are mL/min/1.73 m2 Chronic Kidney Disease Staging per NKF: Stage I & II GFR >=60 Normal to Mildly Decreased Stage III GFR 30-59 Moderately Decreased Stage IV GFR 15-29 Severely Decreased Stage V GFR <15 Very Little GFR Left ESRD GFR <15 on [employer] Lab Order: Liver Profile; SPEC'M 03/23/16 21:15 Test: AST/SGOT; Value: 11; Range: 15-37; Abnormal: Below low normal; Units: U/L; Status: F Test: ALT/SGPT; Value: 23; Range: 12-78; Units: U/L; Status: F Test: ALKALINE PHOSPHATASE; Value: 80; Range: 45-117; Units: U/L; Status: F Test: BILIRUBIN,TOTAL; Value: 0.7; Range: 0.2-1.0; Units: MG/DL; Status: F Test: BILIRUBIN,DIRECT; Value: 0.1; Range: 0.0-0.2; Units: MG/DL; Status: F Test: TOTAL PROTEIN; Value: 8.1; Range: 6.4-8.2; Units: GM/DL; Status: F Test: ALBUMIN; Value: 3.9; Range: 3.2-5.2; Units: GM/DL; Status: F Test: ALBUMIN/GLOBULIN RATIO; Value: 0.93; Range: 1.00-1.93; Abnormal: Below low normal; Status: F Lab Order: Urinalysis; SPEC'M 03/23/16 22:44 Test: APPEARANCE, URINE; Value: CLEAR; Range: CLEAR; Status: F Test: COLOR, URINE; Value: YELLOW; Range: YELLOW; Status: F Test: PH,URINE; Value: 6.0; Range: 5.0-9.0; Units: UNITS; Status: F Test: SPECIFIC GRAVITY URINE AUTO; Value: 1.010; Range: 1.002-1.035; Status: F Test: PROTEIN, URINE AUTO; Value: NEGATIVE; Range: NEGATIVE; Units: mg/dL; Status: F Test: GLUCOSE, URINE (UA) AUTO; Value: NEGATIVE; Range: NEGATIVE; Units: mg/dL; Status: F Test: KETONE, URINE AUTO; Value: NEGATIVE; Range: NEGATIVE; Units: mg/dL; Status: F Test: UROBILINOGEN, URINE AUTO; Value: 0.2; Range: 0.0-2.0; Units: mg/dL; Status: F Test: BILIRUBIN, URINE AUTO; Value: NEGATIVE; Range: NEGATIVE; Status: F Test: NITRITE, URINE AUTO; Value: NEGATIVE; Range: NEGATIVE; Status: F Test: LEUKOCYTE ESTERASE, URINE AUTO; Value: NEGATIVE; Range: NEGATIVE; Status: F Test: BLOOD, URINE BLOOD; Value: NEGATIVE; Range: NEGATIVE; Status: F Test: WBC, URINE AUTO; Value: 0; Range: 0-3; Units: /HPF; Status: F Test: RBC, URINE AUTO; Value: 1; Range: 0-3; Units: /HPF; Status: F Test: BACTERIA, URINE AUTO; Value: NEGATIVE; Range: NEGATIVE; Status: F Test: SQUAMOUS EPITHELIAL CELL UR AU; Value: 0; Range: 0-6; Units: /HPF; Status: F Test: HYALINE CAST, URINE AUTO; Value: 0; Range: 0-1; Units: /LPF; Status: F Lab Order: Urine Culture; SPEC'M 03/23/16 22:44 Test: URINE CULTURE; Value: URINE CULTURE RESULT NO GROWTH; Status: F Lab Order: -Influenza A&B Rapid Antigen - Nose; SPEC'M 03/23/16 21:17 Test: INFLUENZA A RAPID SCR by ICA; Value: INFLUENZA A RESULTS NEGATIVE; Status: F Test: INFLUENZA A RAPID SCR by ICA; Value: Comments:; Status: F Test: INFLUENZA B RAPID SCR by ICA; Value: INFLUENZA B RESULTS NEGATIVE; Status: F Test Note: ; The Influenza test is a direct rapid immunoassay for the qualitative detection of Influenza viral antigen. Cell culture (Viral Culture) testing should be considered to confirm NEGATIVE results and to assist in detecting other viruses that can provide similar clinical symptoms. Please contact the lab within 24 hours ([phone] if confirmatory testing is desired. Lab Order: BLOOD CULTURES; SPEC'M 03/23/16 21:42 Test: BLOOD CULTURE; Value: No growth after 24 hours . All specimens observed; Status: F Test: BLOOD CULTURE; Value: for 5 days. Results final at that time.; Status: F Test: BLOOD CULTURE; Value: No Growth after 48 hours. All Specimens observed; Status: F Test: BLOOD CULTURE; Value: for 7 days. Results final at that time.; Status: F Radiology Order: Chest, 2 View (pa\E\lat) Test: Chest, 2 View (pa\E\lat) REASON FOR EXAMINATION: Shortness of Breath; PA and lateral chest:; ; There are no comparisons.; ; The lung ruffin are clear. The cardiac size is normal; ; The herber, mediastinum, and bony thorax are unremarkable.; ; Impression:; ; Negative PA and lateral chest.; ; ; Signed by; Declan Fierro MD 03/24/2016 04:04 P; Radiology Order: CT ABD & PELVIS: IV Contrast Only Test: CT ABD & PELVIS: IV Contrast Only REASON FOR EXAMINATION: Abdomen Pain; ; CLINICAL HISTORY: Abdominal pain.; TECHNIQUE: Multiple axial, sagittal and coronal CT images were obtained through the abdomen and pelvi; s after administration of intravenous contrast material.; COMMENTS:; The liver is of uniform attenuation without mass or defect. There is no intra or extrahepatic biliary; ductal dilatation. The spleen is normal. The gallbladder is within normal limits. The pancreas is of; normal contour and attenuation characteristics. There is no evidence of adrenal mass.; Both kidneys demonstrate prompt and equal nephrograms. The kidneys are normal in size, shape and conf; iguration. There is no evidence of renal or ureteral mass. No renal or ureteral calculi are identifie; d. There is no hydroureter or hydronephrosis.; No evidence for appendicitis. There is no bowel wall thickening. No evidence for small or large jignesh; l obstruction. Fluid filled mildly dilated small bowels in the pelvis.; There is no evidence of intrinsic or extrinsic bladder mass. There is small amount of free pelvic flu; id. 4.2 cm left ovarian cyst.; Images of the lung bases show no evidence of pleural or parenchymal mass. There are no pleural effusi; ons.; The bony structures are free of lytic or blastic lesions.; IMPRESSION:; Left ovarian cyst.; Fluid filled mildly dilated small bowel loops in the pelvis. Probably mild ileus versus developing en; teritis.; Mildly thickened bladder.; Thank you for your kind referral of this patient.; ; Outcome: 02:17 Discharge ordered by Provider. cs11 02:59 Discharge Assessment: Patient awake, alert and oriented x 3. No cognitive and/or js15 functional deficits noted. Patient verbalized understanding of disposition instructions. patient administered narcotics - no. The following High Risk Discharge criteria are identified: None. Discharged to home ambulatory, with significant other. Condition: stable. Condition: improved. Discharge instructions given to patient, Instructed on discharge instructions, follow up and referral plans. Demonstrated understanding of instructions, Pt was receptive of discharge instructions/ teaching. CT Study completed. Property sent home with patient. 03:01 Patient left the ED. js15 Signatures: Dispatcher [employer] EDMS Laurel Mireles, RN RN kmg1 Tsering Hardy, TICKET SALES AGENT TICKET SALES AGENT Karlos Samano, DO DO cs11 Wilma Barajas gr2 Annemarie Tolentino RN RN js15 Eliana Ortiz, Reg Reg ks16 Brina Scott, TICKET SALES AGENT TICKET SALES AGENT Chasidy Mercado Chart Complete MTDD
--- NOTE | 2016-03-26 04:02 | EDDOCDS ---
Physician Documentation [facility] Name: Camryn Dennis Age: 36 yrs Sex: Female : 1980 Arrival Date: 03/23/2016 Time: 20:34 Bed 1 Private MD: NO PRIMARY PHYSICIAN, . Disposition: 03/24/16 02:17 Discharged to Home/Self Care. Impression: Viral agents as the cause of diseases classified elsewhere. - Condition is Stable. - Medication Reconciliation, Local Pharmacy Hours form. - Follow up: Private Physician; When: Call to arrange an appointment; Reason: Recheck today's complaints. - Problem is new. - Symptoms have improved. Historical: - Allergies: No known drug Allergies; - Home Meds: 1. naproxen 500 mg Oral tab 1 tab 2 times per day (Last dose: 03/23/2016 09:00) 2. chlorthalidone 25 mg Oral tab 1 tab once daily (Last dose: 03/23/2016) 3. cetirizine 10 mg oral tab 1 tab once daily (Last dose: 03/23/2016) 4. Macrobid 100 mg Oral cap 1 cap every 12 hours took last dose of this med this morning for Bacterial Urinary Tract Infection (Last dose: 03/23/2016 09:00) - PMHx: Plantar Fasciitis; Hypertension; Obesity; - PSHx: Tubal ligation; Hernia repair- Umbilical; - Social history: Smoking status: Patient states was never smoker of tobacco. No barriers to communication noted, The patient speaks fluent [place], Speaks appropriately for age. - Family history: Not pertinent. - : The pt / caregiver states he / she is not on anticoagulants. Home medication list is obtained from the patient. - Exposure Risk Screening:: None identified. 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 6 in. (167.64 cm) (R); Pain 5/10; 20:52 BP 136 / 96 (auto/); js15 20:53 Pulse 149 MON; Pulse Ox 94% ; js15 21:15 BP 173 / 104 (auto/); 15 21:15 Pulse 136 MON; Pulse Ox 95% ; js15 21:18 BP 169 / 102 (auto/); 15 21:19 Pulse 131 MON; Pulse Ox 94% ; 15 21:39 BP 163 / 87 (auto/); 15 21:39 Pulse 129 MON; Pulse Ox 92% ; 15 21:44 Pulse 126 MON; Pulse Ox 92% ; 15 21:45 BP 160 / 86 (auto/); 15 21:57 Pulse 124 MON; Pulse Ox 93% ; 15 22:00 BP 161 / 86 (auto/); 15 22:02 Pulse 121 MON; Pulse Ox 93% ; 15 22:13 Pulse 117 MON; Pulse Ox 95% ; 15 22:15 Temp 99.5(O); 15 22:15 BP 165 / 81 (auto/); 15 22:15 Pulse 117 MON; Pulse Ox 95% ; 22:30 BP 165 / 89 (auto/); 22:31 Pulse 115 MON; Pulse Ox 94% ; 15 23:00 BP 151 / 77 (auto/); 23:00 Pulse 116 MON; Pulse Ox 96% ; 23:30 BP 182 / 90 (auto/); 15 23:30 Pulse 108 MON; Pulse Ox 96% ; 03/24 00:00 BP 155 / 83 (auto/); 00:11 Pulse 125 MON; Pulse Ox 86% ; 15 00:30 BP 171 / 102 (auto/); 00:30 Pulse 107 MON; Pulse Ox 96% ; 00:52 BP 140 / 86 (auto/); 00:52 Pulse 111 MON; Pulse Ox 97% ; 15 01:00 BP 148 / 94 (auto/); 15 01:00 Pulse 109 MON; Pulse Ox 97% ; 15 01:15 BP 152 / 93 (auto/); 01:15 Pulse 108 MON; Pulse Ox 97% ; 01:45 BP 124 / 65 (auto/); 01:45 Pulse 112 MON; Pulse Ox 97% ; 15 02:00 BP 126 / 91 (auto/); 15 02:00 Pulse 111 MON; Pulse Ox 98% ; 02:15 BP 136 / 89 (auto/); js15 02:15 Pulse 108 MON; Pulse Ox 99% ; js15 02:24 BP 153 / 85 LA Sitting (auto/reg); Pulse 107 MON; Resp 20 S; Temp 98.6(TE); Pulse Ox cln 99% on 2 lpm NC; Pain 05/10; 03/23 20:36 Body Mass Index 45.19 (127.01 kg, 167.64 cm) gr2 MDM: 03/23 21:00 IV Saline Lock ordered. cs11 21:00 NS 0.9% 1000 ml IV at bolus once ordered. cs11 21:00 Acetaminophen Tablet 975 mg PO once ordered. cs11 21:00 -Blood Culture (Adults Only), peripheral from different site, or from device/port/PICC cs11 etc. if present ordered. 21:00 ketorolac 30 mg IVP once ordered. cs11 21:01 -Blood Culture Ordered. EDMS 21:01 Lactic Acid (Melton tube on ice) Ordered. EDMS 21:01 CBC with Diff Ordered. EDMS 21:01 MED Profile Ordered. EDMS 21:01 Liver Profile Ordered. EDMS 21:01 Urinalysis Ordered. EDMS 21:01 Urine Culture Ordered. EDMS 21:02 Chest, 2 View (pa\E\lat) Ordered. EDMS 21:05 -Blood Culture (Adults Only), peripheral from different site, or from device/port/PICC ml3 etc. if present complete. 21:06 BLOOD CULTURES Ordered. EDMS 21:08 -Influenza A&B Rapid Antigen - Nose Ordered. EDMS 21:55 CBC with Diff Reviewed. cs11 21:55 -Influenza A&B Rapid Antigen - Nose Reviewed. cs11 21:56 Vital Signs ordered. cs11 22:01 Financial registration complete. [email or web address] 22:02 [facility] [place] Payment Agreement was scanned into [employer] and attached to record. [email or web address] 22:12 NS 0.9% 1000 ml IV at bolus once ordered. js15 22:20 MED Profile Reviewed. cs11 22:20 Liver Profile Reviewed. cs11 22:20 Lactic Acid (Melton tube on ice) Reviewed. cs11 22:20 Potassium Chloride Extended Release Tablet 40 mEq PO once ordered. cs11 23:09 Urinalysis Reviewed. cs11 23:14 CT ABD & PELVIS: IV Contrast Only Ordered. EDMS 03/24 02:15 CT ABD & PELVIS: IV Contrast Only Reviewed. cs11 17:04 T-Sheet-- Draft Copy was scanned into [employer] and attached to record. klr Administered Medications: 03/23 21:20 Drug: NS 0.9% 1000 ml [sodium chloride 0.9 % intravenous solution] Route: IV; Rate: js15 bolus; Site: right antecubital; 22:12 Follow up: IV Status: Completed infusion; IV Intake: 1000ml 15 :20 Drug: Acetaminophen 975 mg [acetaminophen 325 mg tablet (3 tabs)] Route: PO; 15 21:20 Drug: ketorolac 30 mg [ketorolac 30 mg/mL (1 mL) injection solution (1 mL)] Route: IVP; js15 Site: right antecubital; 22:00 Follow up: Response: No Adverse Reaction 22:12 Drug: NS 0.9% 1000 ml [sodium chloride 0.9 % intravenous solution] Route: IV; Rate: js15 bolus; Site: right antecubital; 03/24 00:00 Follow up: IV Status: Completed infusion; IV Intake: 1000ml js15 03/23 23:13 Drug: Potassium Chloride 40 mEq [potassium chloride ER 10 mEq tablet,extended release js15 (4 tabs)] Route: PO; Signatures: Dispatcher [employer] EDLaurel Coles, RN RN kmg1 Wojciech Flores, [employer] ml3 Karlos De Souza DO DO cs11 Annemarie Tolentino RN RN js15 Eliana Ortiz, Reg Reg ks16 Chasidy Osorio r The chart was reviewed and I authenticate all verbal orders and agree with the evaluation and treatment provided.Attachments: 22:02 [facility] Payment Agreement [email or web address] 03/24 17:04 T-Sheet-- Draft Copy klr Chart Complete MTDD
--- NOTE | 2016-03-26 04:02 | EDDOCDS ---
Physician Documentation [facility] Name: Camryn Dennis Age: 36 yrs Sex: Female : 1980 Arrival Date: 03/23/2016 Time: 20:34 Bed 1 Private MD: NO PRIMARY PHYSICIAN, . Disposition: 03/24/16 02:17 Discharged to Home/Self Care. Impression: Viral agents as the cause of diseases classified elsewhere. - Condition is Stable. - Medication Reconciliation, Local Pharmacy Hours form. - Follow up: Private Physician; When: Call to arrange an appointment; Reason: Recheck today's complaints. - Problem is new. - Symptoms have improved. Historical: - Allergies: No known drug Allergies; - Home Meds: 1. naproxen 500 mg Oral tab 1 tab 2 times per day (Last dose: 03/23/2016 09:00) 2. chlorthalidone 25 mg Oral tab 1 tab once daily (Last dose: 03/23/2016) 3. cetirizine 10 mg oral tab 1 tab once daily (Last dose: 03/23/2016) 4. Macrobid 100 mg Oral cap 1 cap every 12 hours took last dose of this med this morning for Bacterial Urinary Tract Infection (Last dose: 03/23/2016 09:00) - PMHx: Plantar Fasciitis; Hypertension; Obesity; - PSHx: Tubal ligation; Hernia repair- Umbilical; - Social history: Smoking status: Patient states was never smoker of tobacco. No barriers to communication noted, The patient speaks fluent [place], Speaks appropriately for age. - Family history: Not pertinent. - : The pt / caregiver states he / she is not on anticoagulants. Home medication list is obtained from the patient. - Exposure Risk Screening:: None identified. 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 6 in. (167.64 cm) (R); Pain 5/10; 20:52 BP 136 / 96 (auto/); js15 20:53 Pulse 149 MON; Pulse Ox 94% ; js15 21:15 BP 173 / 104 (auto/); 15 21:15 Pulse 136 MON; Pulse Ox 95% ; js15 21:18 BP 169 / 102 (auto/); 15 21:19 Pulse 131 MON; Pulse Ox 94% ; 15 21:39 BP 163 / 87 (auto/); 15 21:39 Pulse 129 MON; Pulse Ox 92% ; 15 21:44 Pulse 126 MON; Pulse Ox 92% ; 15 21:45 BP 160 / 86 (auto/); 15 21:57 Pulse 124 MON; Pulse Ox 93% ; 15 22:00 BP 161 / 86 (auto/); 15 22:02 Pulse 121 MON; Pulse Ox 93% ; 15 22:13 Pulse 117 MON; Pulse Ox 95% ; 15 22:15 Temp 99.5(O); 15 22:15 BP 165 / 81 (auto/); 15 22:15 Pulse 117 MON; Pulse Ox 95% ; 22:30 BP 165 / 89 (auto/); 22:31 Pulse 115 MON; Pulse Ox 94% ; 15 23:00 BP 151 / 77 (auto/); 23:00 Pulse 116 MON; Pulse Ox 96% ; 23:30 BP 182 / 90 (auto/); 15 23:30 Pulse 108 MON; Pulse Ox 96% ; 03/24 00:00 BP 155 / 83 (auto/); 00:11 Pulse 125 MON; Pulse Ox 86% ; 15 00:30 BP 171 / 102 (auto/); 00:30 Pulse 107 MON; Pulse Ox 96% ; 00:52 BP 140 / 86 (auto/); 00:52 Pulse 111 MON; Pulse Ox 97% ; 15 01:00 BP 148 / 94 (auto/); 15 01:00 Pulse 109 MON; Pulse Ox 97% ; 15 01:15 BP 152 / 93 (auto/); 01:15 Pulse 108 MON; Pulse Ox 97% ; 01:45 BP 124 / 65 (auto/); 01:45 Pulse 112 MON; Pulse Ox 97% ; 15 02:00 BP 126 / 91 (auto/); 15 02:00 Pulse 111 MON; Pulse Ox 98% ; 02:15 BP 136 / 89 (auto/); js15 02:15 Pulse 108 MON; Pulse Ox 99% ; js15 02:24 BP 153 / 85 LA Sitting (auto/reg); Pulse 107 MON; Resp 20 S; Temp 98.6(TE); Pulse Ox cln 99% on 2 lpm NC; Pain 05/10; 03/23 20:36 Body Mass Index 45.19 (127.01 kg, 167.64 cm) gr2 MDM: 03/23 21:00 IV Saline Lock ordered. cs11 21:00 NS 0.9% 1000 ml IV at bolus once ordered. cs11 21:00 Acetaminophen Tablet 975 mg PO once ordered. cs11 21:00 -Blood Culture (Adults Only), peripheral from different site, or from device/port/PICC cs11 etc. if present ordered. 21:00 ketorolac 30 mg IVP once ordered. cs11 21:01 -Blood Culture Ordered. EDMS 21:01 Lactic Acid (Melton tube on ice) Ordered. EDMS 21:01 CBC with Diff Ordered. EDMS 21:01 MED Profile Ordered. EDMS 21:01 Liver Profile Ordered. EDMS 21:01 Urinalysis Ordered. EDMS 21:01 Urine Culture Ordered. EDMS 21:02 Chest, 2 View (pa\E\lat) Ordered. EDMS 21:05 -Blood Culture (Adults Only), peripheral from different site, or from device/port/PICC ml3 etc. if present complete. 21:06 BLOOD CULTURES Ordered. EDMS 21:08 -Influenza A&B Rapid Antigen - Nose Ordered. EDMS 21:55 CBC with Diff Reviewed. cs11 21:55 -Influenza A&B Rapid Antigen - Nose Reviewed. cs11 21:56 Vital Signs ordered. cs11 22:01 Financial registration complete. [email or web address] 22:[address] [facility] Payment Agreement was scanned into [employer] and attached to record. ks16 22:12 NS 0.9% 1000 ml IV at bolus once ordered. js15 22:20 MED Profile Reviewed. cs11 22:20 Liver Profile Reviewed. cs11 22:20 Lactic Acid (Melton tube on ice) Reviewed. cs11 22:20 Potassium Chloride Extended Release Tablet 40 mEq PO once ordered. cs11 23:09 Urinalysis Reviewed. cs11 23:14 CT ABD & PELVIS: IV Contrast Only Ordered. EDMS 03/24 02:15 CT ABD & PELVIS: IV Contrast Only Reviewed. cs11 17:04 T-Sheet-- Draft Copy was scanned into [employer] and attached to record. klr Administered Medications: 03/23 21:20 Drug: NS 0.9% 1000 ml [sodium chloride 0.9 % intravenous solution] Route: IV; Rate: js15 bolus; Site: right antecubital; 22:12 Follow up: IV Status: Completed infusion; IV Intake: 1000ml 15 :20 Drug: Acetaminophen 975 mg [acetaminophen 325 mg tablet (3 tabs)] Route: PO; 15 21:20 Drug: ketorolac 30 mg [ketorolac 30 mg/mL (1 mL) injection solution (1 mL)] Route: IVP; js15 Site: right antecubital; 22:00 Follow up: Response: No Adverse Reaction 22:12 Drug: NS 0.9% 1000 ml [sodium chloride 0.9 % intravenous solution] Route: IV; Rate: js15 bolus; Site: right antecubital; 03/24 00:00 Follow up: IV Status: Completed infusion; IV Intake: 1000ml js15 03/23 23:13 Drug: Potassium Chloride 40 mEq [potassium chloride ER 10 mEq tablet,extended release js15 (4 tabs)] Route: PO; Signatures: Dispatcher [employer] EDLaurel Coles, RN RN kmg1 Wojciech Flores, [employer] ml3 Karlos De Souza DO DO cs11 Annemarie Tolentino RN RN js15 Eliana Ortiz, Reg Reg ks16 Chasidy Osorio r The chart was reviewed and I authenticate all verbal orders and agree with the evaluation and treatment provided.Attachments: 22:02 [facility] Payment Agreement [email or web address] 03/24 17:04 T-Sheet-- Draft Copy klr Chart Complete MTDD
== END 2016-03-24 03:01 | disposition home or self-care (01) ==
LOC: M ED 20:34
DX: B34.9 Viral infection, unspecified (principal); I10 Essential (primary) hypertension; M72.2 Plantar fascial fibromatosis; E66.9 Obesity, unspecified; Z68.42 Body mass index [BMI] 45.0-49.9, adult; Z79.899 Other long term (current) drug therapy
CPT/HCPCS: 71020; 74177; 80048; 80076; 81001; 83605; 85025; 87040; 87086; 87804; 96361; 96374; 99285; J1885; Q9967

== ENCOUNTER → 2016-06-27 | Outpatient (REF) | payer OTHER | LOC: M SFHCWAGY 15:02 | PROVIDERS: ATTEND Nurse Practitioner Family | DX: Z12.4 Encounter for screening for malignant neoplasm of cervix (principal) ==

== ENCOUNTER → 2016-07-10 | Outpatient (CLI) | payer OTHER ==
--- NOTE | 2016-07-11 05:43 | REP ---
Clinical: Lower quadrant pelvic pain . Technique: Transabdominal pelvic ultrasound followed by transvaginal examination for better evaluation of the endometrium and adnexa with color Doppler evaluation of the ovaries. Findings: Bladder is unremarkable and measures 5.6 x 3.2 x 3.1 cm . Normal anteverted uterus measures 10.4 x 4.5 x 6.4 cm . The endometrial complex measures 11.9 mm thickness. No discrete uterine or endometrial abnormalities are appreciated. Incidental subcentimeter Nabothian cysts in the cervical region. Bilateral ovaries are normal in appearance and vascularity without evidence for torsion. Right ovary measures 2.3 x 2.8 x 1.3 cm ; R I = 0.50 . Left ovary measures 2.5 x 1.5 x 2.1 cm ; R I = 0.44 . No pelvic fluid or adnexal mass lesion . Impression: 1. normal pelvic ultrasound Signed by Uvaldo Subramanian MD 07/11/2016 05:35 A
== END ==
LOC: M WHC 15:33
PROVIDERS: ATTEND Nurse Practitioner Family
DX: R10.32 Left lower quadrant pain (principal); N92.6 Irregular menstruation, unspecified

== ENCOUNTER → 2016-08-21 | Outpatient (REF) | payer OTHER ==
[2016-08-22 13:37] LABS: MEAN CORPUSCULAR HEMOGLOBIN 28.9 pg (27.0-33.0); MEAN CORPUSCULAR HGB CONC 34.2 g/dl (32.0-36.5); MEAN CORPUSCULAR VOLUME 84.5 fl (80.0-96.0); RED CELL DISTRIBUTION WIDTH 12.9 % (11.5-14.5); WHITE BLOOD COUNT 8.3 K/mm3 (4.0-10.0)
[2016-08-22 13:50] LABS: ALBUMIN 3.5 GM/DL (3.2-5.2); ALBUMIN/GLOBULIN RATIO 0.97 (1.00-1.93); ALKALINE PHOSPHATASE 84 U/L (45-117); ALT/SGPT 28 U/L (12-78); ANION GAP 9 MEQ/L (8-16); AST/SGOT 16 U/L (15-37); BILIRUBIN,TOTAL 0.2 MG/DL (0.2-1.0); BLOOD UREA NITROGEN 16 MG/DL (7-18); CALCIUM LEVEL 9.1 MG/DL (8.5-10.1); CARBON DIOXIDE LEVEL 29 MEQ/L (21-32); CHLORIDE LEVEL 103 MEQ/L (98-107); CREATININE FOR GFR 0.75 MG/DL (0.55-1.02); GLOMERULAR FILTRATION RATE > 60.0 (>60); GLUCOSE, FASTING 91 MG/DL (70-105); POTASSIUM SERUM 3.9 MEQ/L (3.5-5.1); SODIUM LEVEL 141 MEQ/L (136-145); TOTAL PROTEIN 7.1 GM/DL (6.4-8.2)
== END ==
LOC: M SFHCLERA 15:54
PROVIDERS: ATTEND Physician Assistant
DX: R10.32 Left lower quadrant pain (principal)

== ENCOUNTER → 2016-09-13 | Outpatient (CLI) | payer OTHER ==
[~2016-09-13] MED LIST: GASTROGRAFIN SOLUTION 30ML (Q9963) As Ordered ONE; ISOVUE-370 76% 100ML VIAL (Q9967) As Ordered ONE
--- NOTE | 2016-09-13 21:51 | REP ---
CT ABDOMEN AND PELVIS WITH CONTRAST: HISTORY: Left lower quadrant pain. CONTRAST: Isovue-370 100 mL. COMPARISON: 03/24/2016 The liver, gallbladder, pancreas, spleen, adrenal glands and kidneys are normal in appearance. There is no mass adenopathy or free fluid. The visualized lungs are clear. IMPRESSION: Normal CT abdomen. CT PELVIS: The urinary bladder and uterus are normal in appearance. There is no mass, adenopathy, or free fluid. IMPRESSION: Normal CT pelvis. Signed by Zachariah Trejo MD 09/14/2016 07:57 A
== END ==
LOC: M RAD 15:34
PROVIDERS: ATTEND Physician Assistant
DX: R10.32 Left lower quadrant pain (principal); R10.2 Pelvic and perineal pain

== ENCOUNTER → 2016-09-20 | Outpatient (REF) | payer OTHER | LOC: M SFHCLERA 16:42 | PROVIDERS: ATTEND Physician Assistant | DX: E66.01 Morbid (severe) obesity due to excess calories (principal) ==

== ENCOUNTER → 2016-10-14 | Outpatient (CLI) | payer OTHER ==
--- NOTE | 2016-10-14 21:37 | REP ---
MRI PELVIS WITH AND WITHOUT CONTRAST: TECHNIQUE: Multiple sequences obtained in the axial, coronal and sagittal planes prior to and following the intravenous administration of 26 mL gadolinium. Correlation made with CT abdomen and pelvis 09/13/2016. There is no adenopathy in the pelvis. No pelvic mass is seen. The uterus is normal in size. No myometrial abnormality is seen. A couple of tiny nabothian cysts are seen in the region of the cervix. Endometrium is normal in thickness at 6 mm. Ovaries are normal. There is no ovarian cyst or adnexal mass. No free fluid is seen. No abnormality is seen of the visualized osseous structures. IMPRESSION: Essentially negative MRI pelvis with and without contrast. Signed by Declan Melton MD 10/15/2016 12:36 P
== END ==
LOC: M RAD 16:15
PROVIDERS: ATTEND Physician Assistant
DX: R10.32 Left lower quadrant pain (principal)

== ENCOUNTER → 2017-03-07 | Outpatient (CLI) | payer OTHER | LOC: M LRY 16:07 | DX: M54.42 Lumbago with sciatica, left side (principal) ==

== ENCOUNTER → 2017-04-01 | Outpatient (CLI) | payer OTHER | LOC: M RAD 16:26 | DX: M54.5 Low back pain (principal) ==

== ENCOUNTER → 2017-04-20 | Outpatient (CLI) | payer OTHER | LOC: M SLEEP 19:49 | DX: G47.33 Obstructive sleep apnea (adult) (pediatric) (principal) | CPT/HCPCS: 95810 ==

== ENCOUNTER → 2017-06-06 | Outpatient (CLI) | payer OTHER | LOC: M SLEEP 19:52 | DX: G47.33 Obstructive sleep apnea (adult) (pediatric) (principal) ==

== ENCOUNTER → 2017-07-09 | Outpatient (CLI) | payer OTHER | LOC: M EKG 17:45 | DX: I10 Essential (primary) hypertension (principal) | CPT/HCPCS: 93005 ==

== ENCOUNTER 2017-07-14 06:01 | Day surgery (SDC) | payer OTHER ==
[2017-07-14] MEDS ORDERED: LIDOCAINE 1% MDV 20ML VIAL SQ (06:15)
[2017-07-14 06:25] LABS: HEMATOCRIT 38.2 % (36.0-47.0); MEAN CORPUSCULAR HEMOGLOBIN 27.4 pg (27.0-33.0); MEAN CORPUSCULAR VOLUME 80.4 fl (80.0-96.0); PLATELET COUNT, AUTOMATED 290 10^3/uL (150-450); RED BLOOD COUNT 4.75 10^6/uL (4.00-5.40); RED CELL DISTRIBUTION WIDTH 13.1 % (11.5-14.5); WHITE BLOOD COUNT 8.2 10^3/uL (4.0-10.0)
[2017-07-14 06:38] LABS: CONTROL LINE HCG INT CTR LINE PRESENT; HCG, SERUM QUALITATIVE NEGATIVE (NEGATIVE)
[2017-07-14] MEDS: LR 1,000 ML IV ×4 (07:05→20:17)
[2017-07-14] MEDS ORDERED: LIDOCAINE 2% INJ 100 MG/5 ML SDV (FOR ANES.) As Ordered (07:10)
[2017-07-14] MEDS ORDERED: PROPOFOL 200 MG/20 ML VIAL As Ordered (07:10)
[2017-07-14] MEDS ORDERED: ONDANSETRON 4MG/2ML VIAL (J2405) As Ordered ×2 (07:10→10:47)
[2017-07-14] MEDS ORDERED: METOCLOPRAMIDE INJ 10MG/2ML VIAL (J2765) As Ordered (07:10)
[2017-07-14] MEDS ORDERED: ROCURONIUM BROMIDE 50 MG/5 ML VIAL As Ordered ×2 (07:10→08:26)
[2017-07-14] MEDS ORDERED: MIDAZOLAM INJ 2 MG/2 ML VIAL (J2250) As Ordered (07:10)
[2017-07-14] MEDS ORDERED: dexameTHASONE 4 MG/ML 1ML VIAL (J1100) As Ordered (07:11)
[2017-07-14] MEDS ORDERED: fentaNYL 100 MCG/2 ML INJECTION (J3010) As Ordered ×3 (07:11→09:19)
[2017-07-14] MEDS: BUPIVACAINE HCL 0.25% 30 ML VIAL As Ordered (08:15)
[2017-07-14] MEDS: GABAPENTIN 300 MG CAP PO ×4 (09:00→20:18)
[2017-07-14] MEDS: CETIRIZINE (ZyrTEC) 10 MG TAB PO (09:00)
[2017-07-14] MEDS: METHYLENE BLUE 0.5% (5MG/ML) 10 ML AMP (PROVAYBLUE)(Q9968 PER 1MG) As Ordered (09:30)
[2017-07-14] MEDS ORDERED: GLYCOPYRROLATE INJ 0.2 MG/ML 2 ML VIAL As Ordered (10:12)
[2017-07-14] MEDS ORDERED: NEOSTIGMINE 10 MG/10 ML VIAL (J2710) As Ordered (10:12)
[2017-07-14] MEDS ORDERED: KETOROLAC 60 MG/2 ML VIAL (J1885) As Ordered ×2 (10:22→13:51)
[2017-07-14] MEDS: ONDANSETRON 4MG/2ML VIAL (J2405) IV (10:55)
[2017-07-14] MEDS ORDERED: ONDANSETRON 4MG/2ML VIAL (J2405) IV (11:00)
[2017-07-14] MEDS ORDERED: PROMETHAZINE INJ 25 MG/ML VIAL (J2550) IV (11:00)
[2017-07-14] MEDS ORDERED: PERCOCET 5MG/325MG TAB PO (11:00)
[2017-07-14] MEDS: fentaNYL 100 MCG/2 ML INJECTION (J3010) IV ×4 (11:14→11:35)
[2017-07-14] MEDS ORDERED: HYDROmorphone HCL 2 MG/ML 1ML VIAL (J1170) As Ordered (12:09)
[2017-07-14] MEDS: PERCOCET 5MG/325MG TAB PO (13:07)
[2017-07-14] MEDS: KETOROLAC 30 MG/ML VIAL (J1885) IV ×2 (16:29→23:33)
[2017-07-14] MEDS: DOCUSATE SODIUM 100 MG CAP PO (20:18)
[2017-07-15] MEDS: LR 1,000 ML IV ×2 (03:37→10:45)
[2017-07-15] MEDS: KETOROLAC 30 MG/ML VIAL (J1885) IV ×2 (05:54→10:45)
[2017-07-15 06:37] LABS: BASO % 0.1 % (0.0-1.0); HEMATOCRIT 35.2 % (36.0-47.0); HEMOGLOBIN 11.8 g/dl (12.0-15.5); IMMATURE GRANULOCYTE % 0.3 % (0-3.0); LYMPH # 1.5 10^3/uL (1.5-4.5); LYMPH % 10.5 % (24.0-44.0); MEAN CORPUSCULAR HGB CONC 33.5 g/dl (32.0-36.5); MEAN CORPUSCULAR VOLUME 80.5 fl (80.0-96.0); MONO # 0.8 10^3/uL (0.0-0.8); MONO % 5.4 % (0.0-5.0); NEUTROPHILS # 12.2 10^3/uL (1.8-7.7); NEUTROPHILS % 83.7 % (36.0-66.0); PLATELET COUNT, AUTOMATED 296 10^3/uL (150-450); RED BLOOD COUNT 4.37 10^6/uL (4.00-5.40); RED CELL DISTRIBUTION WIDTH 13.4 % (11.5-14.5); WHITE BLOOD COUNT 14.6 10^3/uL (4.0-10.0)
[2017-07-15] MEDS: GABAPENTIN 300 MG CAP PO (09:47)
[2017-07-15] MEDS: CETIRIZINE (ZyrTEC) 10 MG TAB PO (09:47)
[2017-07-15] MEDS: DOCUSATE SODIUM 100 MG CAP PO (09:47)
[2017-07-15] MEDS: CHLORTHALIDONE 12.5MG PER 1/2 TABLET PO (10:45)
[2017-07-15] MEDS ORDERED: IBUPROFEN 800 MG TAB PO (19:00)
== END 2017-07-15 12:10 | disposition home or self-care (01) ==
LOC: M SDC 06:01 → M MS5PR 12:00
DX: N92.6 Irregular menstruation, unspecified (principal); N72 Inflammatory disease of cervix uteri; N80.0 Endometriosis of uterus; I10 Essential (primary) hypertension; G47.30 Sleep apnea, unspecified; Z79.899 Other long term (current) drug therapy
CPT/HCPCS: 58571

== ENCOUNTER → 2017-08-27 | Outpatient (REF) | payer OTHER ==
[2017-08-27 11:59] LABS: HEMATOCRIT 39.8 % (36.0-47.0); HEMOGLOBIN 13.1 g/dl (12.0-15.5); MEAN CORPUSCULAR HEMOGLOBIN 26.7 pg (27.0-33.0); MEAN CORPUSCULAR HGB CONC 32.9 g/dl (32.0-36.5); MEAN CORPUSCULAR VOLUME 81.2 fl (80.0-96.0); PLATELET COUNT, AUTOMATED 332 10^3/uL (150-450); RED CELL DISTRIBUTION WIDTH 13.2 % (11.5-14.5); WHITE BLOOD COUNT 7.5 10^3/uL (4.0-10.0)
[2017-08-27 12:17] LABS: ALBUMIN 3.7 GM/DL (3.2-5.2); ALBUMIN/GLOBULIN RATIO 1.06 (1.00-1.93); ALKALINE PHOSPHATASE 76 U/L (45-117); ALT/SGPT 29 U/L (12-78); ANION GAP 8 MEQ/L (8-16); AST/SGOT 18 U/L (7-37); BILIRUBIN,TOTAL 0.4 MG/DL (0.2-1.0); BLOOD UREA NITROGEN 14 MG/DL (7-18); CALCIUM LEVEL 9.1 MG/DL (8.5-10.1); CARBON DIOXIDE LEVEL 28 MEQ/L (21-32); CHLORIDE LEVEL 103 MEQ/L (98-107); GLOMERULAR FILTRATION RATE > 60.0 (>60); GLUCOSE, FASTING 84 MG/DL (70-100); POTASSIUM SERUM 3.7 MEQ/L (3.5-5.1); SODIUM LEVEL 139 MEQ/L (136-145); TOTAL PROTEIN 7.2 GM/DL (6.4-8.2)
== END ==
LOC: M SFHCLERA 10:07
DX: F41.9 Anxiety disorder, unspecified (principal)
CPT/HCPCS: 84443

== ENCOUNTER → 2017-11-26 | Outpatient (CLI) | payer OTHER | LOC: M RAD 17:51 | DX: M70.62 Trochanteric bursitis, left hip (principal); R93.8 Abnormal findings on diagnostic imaging of other specified body structures; M25.552 Pain in left hip | CPT/HCPCS: 73721 ==

== ENCOUNTER → 2017-12-25 | Outpatient (REF) | payer OTHER | LOC: M SFHCPLAZ 13:45 | DX: I10 Essential (primary) hypertension (principal) ==

== ENCOUNTER → 2018-02-15 | Outpatient (REF) | payer OTHER ==
[~2018-02-15] MED LIST changes: +CHLO125TA PO; +COLA100C5 PO; +GABA-843 PO; -GASTROGRAFIN SOLUTION 30ML (Q9963) As Ordered ONE; +IBUP80TA PO; -ISOVUE-370 76% 100ML VIAL (Q9967) As Ordered ONE; +NAPR1TAB83 PO; +OXYC1TAB23 PO; +ZYRT10CA5 PO
== END ==
LOC: M LAB REF 12:36
PROVIDERS: ATTEND Physician Assistant
DX: R30.0 Dysuria (principal)

== ENCOUNTER → 2018-03-10 | Outpatient (REF) | payer OTHER | LOC: M SFHCPLAZ 11:47 | PROVIDERS: ATTEND Nurse Practitioner Family | DX: R30.0 Dysuria (principal) ==

== ENCOUNTER → 2018-04-26 | Outpatient (CLI) | payer OTHER ==
[2018-04-26 12:52] LABS: ALBUMIN 3.8 GM/DL (3.2-5.2); ALT/SGPT 42 U/L (12-78); BILIRUBIN,TOTAL 0.6 MG/DL (0.2-1.0); BLOOD UREA NITROGEN 18 MG/DL (7-18); CALCIUM LEVEL 8.6 MG/DL (8.5-10.1); CARBON DIOXIDE LEVEL 28 MEQ/L (21-32); CHLORIDE LEVEL 102 MEQ/L (98-107); CHOLESTEROL LEVEL 180 MG/DL (<200); CREATININE FOR GFR 0.67 MG/DL (0.55-1.30); GLOMERULAR FILTRATION RATE > 60.0 (>60); GLUCOSE, FASTING 87 MG/DL (70-100); HDL CHOLESTEROL 59 MG/DL (>40); LDL CHOLESTEROL 109 MG/DL (<100); NON-HDL-C 121 MG/DL; POTASSIUM SERUM 3.7 MEQ/L (3.5-5.1); SODIUM LEVEL 139 MEQ/L (136-145); TOTAL PROTEIN 7.1 GM/DL (6.4-8.2); TRIGLYCERIDES LEVEL 58 MG/DL (<150)
== END ==
LOC: M WUC 09:50
PROVIDERS: ATTEND Nurse Practitioner Family
DX: I10 Essential (primary) hypertension (principal); Z68.42 Body mass index [BMI] 45.0-49.9, adult; Z13.220 Encounter for screening for lipoid disorders

== ENCOUNTER 2018-07-29 16:27 | Emergency (ER) | payer OTHER ==
[~2018-07-29] VITALS: Ht 165.1 cm; Wt 125.0 kg
[2018-07-29] MEDS ORDERED: LIDOCAINE VISCOUS 2% SOLN 15ML UDC PO ONE (19:30)
--- NOTE | 2018-07-29 20:04 | REP ---
Clinical: Possible foreign body . Comparison: 03/23/2016 . Technique: PA and lateral. Findings: The mediastinum and cardiac silhouette are normal. The lung ruffin are clear and without acute consolidation, effusion, or pneumothorax. The skeletal structures are intact and normal. No radiolucent or radiodense foreign body identified. Impression: 1. No acute cardiopulmonary process. Electronically Signed by Uvaldo Subramanian MD 07/29/2018 07:55 P
--- NOTE | 2018-07-29 20:06 | REP ---
Clinical: Foreign body. Technique: AP and lateral soft tissue neck radiographs. Findings: Osseous structures demonstrate mild focal degenerative disc osteophyte complex at C5-6 and C6-7. Soft tissues are normal. No soft tissue swelling, subcutaneous emphysema or foreign body. Impression: No foreign body identified. Electronically Signed by Uvaldo Subramanian MD 07/29/2018 07:57 P
[2018-07-29 20:18] VITALS: BP 132/96
== END 2018-07-29 21:02 | disposition home or self-care (01) ==
LOC: M ED 16:27
DX: G47.33 Obstructive sleep apnea (adult) (pediatric) (principal); Q65.89 Other specified congenital deformities of hip; Z79.899 Other long term (current) drug therapy

== ENCOUNTER → 2019-01-24 | Outpatient (CLI) | payer OTHER ==
[2019-01-24 14:24] LABS: ALBUMIN 3.4 GM/DL (3.2-5.2); ALT/SGPT 33 U/L (12-78); BILIRUBIN,TOTAL 0.6 MG/DL (0.2-1.0); BLOOD UREA NITROGEN 12 MG/DL (7-18); CALCIUM LEVEL 8.9 MG/DL (8.5-10.1); CARBON DIOXIDE LEVEL 29 MEQ/L (21-32); CHLORIDE LEVEL 101 MEQ/L (98-107); GLOMERULAR FILTRATION RATE > 60.0 (>60); GLUCOSE, FASTING 87 MG/DL (70-100); POTASSIUM SERUM 3.3 MEQ/L (3.5-5.1); SODIUM LEVEL 139 MEQ/L (136-145); TOTAL PROTEIN 6.8 GM/DL (6.4-8.2)
== END ==
LOC: M WUC 11:54
PROVIDERS: ATTEND Nurse Practitioner Family
DX: I10 Essential (primary) hypertension (principal); Z68.42 Body mass index [BMI] 45.0-49.9, adult

== ENCOUNTER → 2019-05-25 | Outpatient (CLI) | payer OTHER ==
--- NOTE | 2019-05-25 09:13 | REP ---
Clinical: Anosmia. Technique: Axial noncontrast images through the maxillofacial region with coronal and sagittal re-formations. Findings: The osseous structures are intact and normal. The sinuses and mastoid air cells are clear. Nasopharynx including nasopharyngeal soft tissues are normal. No mass lesion or abnormalities appreciated. Visualized airways patent and midline. Impression: Normal noncontrast maxillofacial CT. Electronically Signed by Uvaldo Subramanian MD 05/25/2019 09:05 A
== END ==
LOC: M RAD 08:30
PROVIDERS: ATTEND Specialist
DX: R43.0 Anosmia (principal)

== ENCOUNTER → 2020-02-16 | Outpatient (CLI) | payer OTHER ==
[2020-02-16 14:23] LABS: ALBUMIN 3.6 GM/DL (3.2-5.2); ALT/SGPT 40 U/L (12-78); BILIRUBIN,TOTAL 0.6 MG/DL (0.2-1.0); BLOOD UREA NITROGEN 12 MG/DL (7-18); CALCIUM LEVEL 9.3 MG/DL (8.5-10.1); CARBON DIOXIDE LEVEL 29 MEQ/L (21-32); CHLORIDE LEVEL 104 MEQ/L (98-107); CHOLESTEROL LEVEL 188 MG/DL (<200); CHOLESTEROL RISK RATIO 2.937 (<5); CREATININE FOR GFR 0.66 MG/DL (0.55-1.30); GLOMERULAR FILTRATION RATE > 60.0 (>60); GLUCOSE, FASTING 95 MG/DL (70-100); HDL CHOLESTEROL 64 MG/DL (>40); LDL CHOLESTEROL 106 MG/DL (<100); NON-HDL-C 124 MG/DL; POTASSIUM SERUM 3.9 MEQ/L (3.5-5.1); SODIUM LEVEL 139 MEQ/L (136-145); TOTAL PROTEIN 7.1 GM/DL (6.4-8.2); TRIGLYCERIDES LEVEL 92 MG/DL (<150)
[2020-02-16 14:28] LABS: TOTAL 25(OH) VITAMIN D 44.1 NG/ML (30.0-100.0)
== END ==
LOC: M WUC 08:41
PROVIDERS: ATTEND Physician Assistant
DX: Z00.00 Encounter for general adult medical examination without abnormal findings (principal); I10 Essential (primary) hypertension; Z13.220 Encounter for screening for lipoid disorders

== ENCOUNTER → 2021-04-24 | Outpatient (CLI) | payer OTHER ==
[~2021-04-24] MED LIST changes: +GABA-282 PO; -GABA-843 PO
[2021-04-24 10:08] LABS: BASO % 0.6 % (0.0-1.0); EOS # 0.1 10^3/uL (0.0-0.5); EOS % 1.6 % (0.0-3.0); HEMATOCRIT 43.1 % (36.0-47.0); HEMOGLOBIN 14.2 g/dl (12.0-15.5); LYMPH # 2.2 10^3/uL (1.5-5.0); LYMPH % 32.5 % (24.0-44.0); MEAN CORPUSCULAR HGB CONC 32.9 g/dl (32.0-36.5); MEAN CORPUSCULAR VOLUME 84.8 fl (80.0-96.0); MONO # 0.5 10^3/uL (0.0-0.8); NEUTROPHILS # 3.9 10^3/uL (1.5-8.5); PLATELET COUNT, AUTOMATED 297 10^3/uL (150-450); RED BLOOD COUNT 5.08 10^6/uL (4.00-5.40); WHITE BLOOD COUNT 6.8 10^3/uL (4.0-10.0)
[2021-04-24 10:36] LABS: ALBUMIN 3.6 GM/DL (3.2-5.2); ALT/SGPT 29 U/L (12-78); BILIRUBIN,TOTAL 0.5 MG/DL (0.2-1.0); BLOOD UREA NITROGEN 17 MG/DL (7-18); CALCIUM LEVEL 8.8 MG/DL (8.5-10.1); CARBON DIOXIDE LEVEL 26 MEQ/L (21-32); CHLORIDE LEVEL 106 MEQ/L (98-107); CHOLESTEROL LEVEL 180 MG/DL (<200); CHOLESTEROL RISK RATIO 3.214 (<5); CREATININE FOR GFR 0.69 MG/DL (0.55-1.30); FREE T4 1.12 NG/DL (0.76-1.46); GLOMERULAR FILTRATION RATE > 60.0 (>58); GLUCOSE, FASTING 85 MG/DL (70-100); HDL CHOLESTEROL 56 MG/DL (>40); LDL CHOLESTEROL 109 MG/DL (<100); NON-HDL-C 124 MG/DL; POTASSIUM SERUM 4.1 MEQ/L (3.5-5.1); SODIUM LEVEL 141 MEQ/L (136-145); TOTAL PROTEIN 7.2 GM/DL (6.4-8.2); TRIGLYCERIDES LEVEL 77 MG/DL (<150)
[2021-04-24 11:21] LABS: HEMOGLOBIN A1c 5.2 %
== END ==
LOC: M WUC 08:32
PROVIDERS: ATTEND Physician Assistant
DX: I10 Essential (primary) hypertension (principal); Z68.42 Body mass index [BMI] 45.0-49.9, adult

== ENCOUNTER → 2021-05-21 | Outpatient (REF) | payer OTHER | LOC: M WUC 19:58 | PROVIDERS: ATTEND Physician Assistant | DX: R30.0 Dysuria (principal) ==

== ENCOUNTER → 2021-09-26 | Outpatient (REF) | payer OTHER | LOC: M SFHCWAGY 13:05 | PROVIDERS: ATTEND Obstetrics & Gynecology | DX: Z12.4 Encounter for screening for malignant neoplasm of cervix (principal); Z12.72 Encounter for screening for malignant neoplasm of vagina | CPT/HCPCS: 87624; G0123 ==

== ENCOUNTER → 2022-01-11 | Outpatient (CLI) | payer OTHER ==
[2022-01-11 12:45] LABS: BASO # 0.1 10^3/uL (0.0-0.2); BASO % 0.8 % (0.0-1.0); EOS # 0.1 10^3/uL (0.0-0.5); EOS % 1.9 % (0.0-3.0); HEMATOCRIT 41.7 % (36.0-47.0); HEMOGLOBIN 13.9 g/dl (12.0-15.5); LYMPH # 1.8 10^3/uL (1.5-5.0); LYMPH % 24.9 % (24.0-44.0); MEAN CORPUSCULAR HEMOGLOBIN 29.3 pg (27.0-33.0); MEAN CORPUSCULAR HGB CONC 33.3 g/dl (32.0-36.5); MONO # 0.7 10^3/uL (0.0-0.8); MONO % 9.5 % (2.0-8.0); NEUTROPHILS # 4.5 10^3/uL (1.5-8.5); NEUTROPHILS % 62.6 % (36.0-66.0); PLATELET COUNT, AUTOMATED 282 10^3/uL (150-450); RED BLOOD COUNT 4.74 10^6/uL (4.00-5.40); WHITE BLOOD COUNT 7.2 10^3/uL (4.0-10.0)
[2022-01-11 13:36] LABS: MAU/CREAT RATIO 48.2 MCG/MG (0.0-30.0)
[2022-01-11 13:42] LABS: ALBUMIN 3.6 GM/DL (3.2-5.2); ALT/SGPT 30 U/L (12-78); BILIRUBIN,TOTAL 0.6 MG/DL (0.2-1.0); BLOOD UREA NITROGEN 12 MG/DL (7-18); CALCIUM LEVEL 9.2 MG/DL (8.5-10.1); CARBON DIOXIDE LEVEL 24 MEQ/L (21-32); CHLORIDE LEVEL 105 MEQ/L (98-107); CHOLESTEROL LEVEL 160 MG/DL (<200); CHOLESTEROL RISK RATIO 2.666 (<5); GLOMERULAR FILTRATION RATE > 60.0 (>58); GLUCOSE, FASTING 86 MG/DL (70-100); HDL CHOLESTEROL 60 MG/DL (>40); LDL CHOLESTEROL 88 MG/DL (<100); NON-HDL-C 100 MG/DL; POTASSIUM SERUM 4.2 MEQ/L (3.5-5.1); SODIUM LEVEL 136 MEQ/L (136-145); TRIGLYCERIDES LEVEL 59 MG/DL (<150)
[2022-01-11 14:37] LABS: HEMOGLOBIN A1c 4.9 %
== END ==
LOC: M WUC 09:47
PROVIDERS: ATTEND Physician Assistant
DX: E78.5 Hyperlipidemia, unspecified (principal); I10 Essential (primary) hypertension; Z68.42 Body mass index [BMI] 45.0-49.9, adult; Z13.21 Encounter for screening for nutritional disorder; Z79.899 Other long term (current) drug therapy

== ENCOUNTER 2023-01-27 10:57 | Emergency (ER) | payer OTHER ==
[~2023-01-27] VITALS: Ht 165.1 cm; Wt 117.6 kg
[2023-01-27] MEDS ORDERED: SEMA2.4P (11:21)
[2023-01-27] MEDS ORDERED: ISOVUE-370 76% 100ML VIAL As Ordered ONE (13:54)
[2023-01-27] MEDS ORDERED: ONDANSETRON 4MG 2ML VIAL IV ONE (13:55)
[2023-01-27] MEDS ORDERED: KETOROLAC 30 MG/ML 1ML VIAL IV ONE (13:55)
[2023-01-27 14:08] LABS: BASO # 0.1 10^3/uL (0.0-0.2); BASO % 0.4 % (0.0-1.0); EOS # 0.1 10^3/uL (0.0-0.5); EOS % 1.1 % (0.0-3.0); HEMATOCRIT 43.6 % (36.0-47.0); HEMOGLOBIN 14.7 g/dl (12.0-15.5); LYMPH # 2.5 10^3/uL (1.5-5.0); MEAN CORPUSCULAR HEMOGLOBIN 29.5 pg (27.0-33.0); MEAN CORPUSCULAR HGB CONC 33.7 g/dl (32.0-36.5); MEAN CORPUSCULAR VOLUME 87.6 fl (80.0-96.0); MONO # 0.7 10^3/uL (0.0-0.8); NEUTROPHILS # 7.9 10^3/uL (1.5-8.5); NEUTROPHILS % 70.2 % (36.0-66.0); PLATELET COUNT, AUTOMATED 318 10^3/uL (150-450); RED BLOOD COUNT 4.98 10^6/uL (4.00-5.40); WHITE BLOOD COUNT 11.2 10^3/uL (4.0-10.0)
[2023-01-27 14:24] LABS: ALBUMIN 3.8 G/DL (3.2-5.2); BILIRUBIN,DIRECT 0.2 MG/DL (<0.4); BILIRUBIN,TOTAL 0.6 MG/DL (0.3-1.2); TOTAL PROTEIN 7.2 G/DL (5.7-8.2)
[2023-01-27] MEDS ORDERED: PIPERACILLIN/TAZOBACTAM SOD 3.375 GM in D5W MINI-BAG PLUS 50 ML IV ONE (15:25)
[2023-01-27 16:17] VITALS: TEMP 98.5
[2023-01-27 16:31] LABS: RSV AMPLIFICATION NEGATIVE (NEGATIVE)
[2023-01-27 17:00] VITALS: BP 173/100
[2023-01-27 17:57] VITALS: O2SAT 100
== END 2023-01-27 18:42 | disposition short-term general hospital (02) ==
LOC: M ED 10:57
DX: I72.8 Aneurysm of other specified arteries (principal); K38.8 Other specified diseases of appendix; I10 Essential (primary) hypertension; Z79.899 Other long term (current) drug therapy
CPT/HCPCS: 74177; 80047; 80076; 81001; 83690; 85025; 87631; 96374; 96375; 99285; J1885; J2405; J2543; Q9967

== ENCOUNTER 2023-05-05 16:29 | Emergency (ER) | payer OTHER ==
[~2023-05-05] VITALS: Ht 165.1 cm; Wt 118.3 kg
[~2023-05-05 16:29] MED LIST changes: +SEMA2.4P
[2023-05-05] MEDS ORDERED: HYDR-3363 (17:01)
[2023-05-05] MEDS ORDERED: LISI2.5T9 (17:01)
[2023-05-05 18:04] LABS: BASO % 0.1 % (0.0-1.0); EOS # 0.1 10^3/uL (0.0-0.5); EOS % 0.7 % (0.0-3.0); HEMATOCRIT 42.8 % (36.0-47.0); HEMOGLOBIN 14.3 g/dl (12.0-15.5); LYMPH # 0.8 10^3/uL (1.5-5.0); LYMPH % 5.7 % (24.0-44.0); MEAN CORPUSCULAR HEMOGLOBIN 29.3 pg (27.0-33.0); MEAN CORPUSCULAR HGB CONC 33.4 g/dl (32.0-36.5); MEAN CORPUSCULAR VOLUME 87.7 fl (80.0-96.0); MONO # 0.7 10^3/uL (0.0-0.8); MONO % 4.9 % (2.0-8.0); NEUTROPHILS # 12.2 10^3/uL (1.5-8.5); NEUTROPHILS % 88.2 % (36.0-66.0); PLATELET COUNT, AUTOMATED 287 10^3/uL (150-450); RED BLOOD COUNT 4.88 10^6/uL (4.00-5.40); WHITE BLOOD COUNT 13.9 10^3/uL (4.0-10.0)
[2023-05-05 18:09] LABS: ALBUMIN 3.7 G/DL (3.2-5.2); ALKALINE PHOSPHATASE 67 U/L (46-116); ALT/SGPT 21 U/L (7.0-40); AST/SGOT 13 U/L (<34); BILIRUBIN,DIRECT 0.2 MG/DL (<0.4); BILIRUBIN,TOTAL 0.8 MG/DL (0.3-1.2); BLOOD UREA NITROGEN 18 MG/DL (9-23); CALCIUM LEVEL 8.4 MG/DL (8.5-10.1); CARBON DIOXIDE LEVEL 26 MMOL/L (20-31); CHLORIDE LEVEL 106 MMOL/L (98-107); CREATININE FOR GFR 0.68 MG/DL (0.55-1.30); GLOMERULAR FILTRATION RATE > 60.0 (>58); GLUCOSE, FASTING 91 MG/DL (60-100); POTASSIUM SERUM 4.2 MMOL/L (3.5-5.1); SODIUM LEVEL 139 MMOL/L (136-145); TOTAL PROTEIN 7.1 G/DL (5.7-8.2)
[2023-05-05 18:14] LABS: HCG, SERUM QUALITATIVE NEGATIVE (NEGATIVE)
[2023-05-05] MEDS ORDERED: ISOVUE-370 76% 100ML VIAL As Ordered ONE (19:55)
[2023-05-05] MEDS: KETOROLAC 30 MG/ML 1ML VIAL IV ONE (20:17)
[2023-05-05] MEDS: ONDANSETRON 4MG 2ML VIAL IV ONE (20:17)
[2023-05-05] MEDS: NS 1,000 ML IV ONE (20:18)
[2023-05-05] MEDS ORDERED: IBUP-1022 PO (22:22)
[2023-05-05] MEDS ORDERED: ONDA4TAB6 PO (22:22)
[2023-05-05 22:32] VITALS: BP 139/83; TEMP 100; O2SAT 100
[2023-05-05] MEDS: ONDANSETRON 4MG ORAL DISINTEGRATING TAB PO ONE (22:34)
== END 2023-05-05 22:36 | disposition home or self-care (01) ==
LOC: M ED 16:29
DX: I88.0 Nonspecific mesenteric lymphadenitis (principal); I10 Essential (primary) hypertension; F41.9 Anxiety disorder, unspecified; Z79.83 Long term (current) use of bisphosphonates; Z79.811 Long term (current) use of aromatase inhibitors; Z79.899 Other long term (current) drug therapy
CPT/HCPCS: 74174; 80048; 80076; 81001; 84703; 85025; 96361; 96374; 99284; J1885; J2405; Q9967

== ENCOUNTER → 2023-06-21 | Outpatient (CLI) | payer OTHER ==
[~2023-06-21] MED LIST changes: +HYDR-3363; +IBUP-1022 PO; +LISI2.5T9; +ONDA4TAB6 PO
[2023-06-21 10:20] LABS: BASO % 0.6 % (0.0-1.0); EOS # 0.2 10^3/uL (0.0-0.5); EOS % 2.8 % (0.0-3.0); HEMATOCRIT 39.8 % (36.0-47.0); HEMOGLOBIN 13.6 g/dl (12.0-15.5); LYMPH # 1.6 10^3/uL (1.5-5.0); LYMPH % 24.9 % (24.0-44.0); MEAN CORPUSCULAR HEMOGLOBIN 29.9 pg (27.0-33.0); MEAN CORPUSCULAR HGB CONC 34.2 g/dl (32.0-36.5); MEAN CORPUSCULAR VOLUME 87.5 fl (80.0-96.0); MONO # 0.5 10^3/uL (0.0-0.8); MONO % 7.9 % (2.0-8.0); NEUTROPHILS # 4.1 10^3/uL (1.5-8.5); NEUTROPHILS % 63.6 % (36.0-66.0); PLATELET COUNT, AUTOMATED 253 10^3/uL (150-450); RED BLOOD COUNT 4.55 10^6/uL (4.00-5.40); WHITE BLOOD COUNT 6.4 10^3/uL (4.0-10.0)
[2023-06-21 10:33] LABS: HEMOGLOBIN A1c 4.5 % (4.0-6.0)
[2023-06-21 10:42] LABS: ALBUMIN 3.2 G/DL (3.2-5.2); ALKALINE PHOSPHATASE 64 U/L (46-116); ALT/SGPT 25 U/L (7.0-40); AST/SGOT 16 U/L (<34); BILIRUBIN,TOTAL 0.8 MG/DL (0.3-1.2); BLOOD UREA NITROGEN 11 MG/DL (9-23); CALCIUM LEVEL 8.9 MG/DL (8.5-10.1); CARBON DIOXIDE LEVEL 26 MMOL/L (20-31); CHLORIDE LEVEL 105 MMOL/L (98-107); CHOLESTEROL LEVEL 156 MG/DL (<200); CHOLESTEROL RISK RATIO 2.97 (<5); CREATININE FOR GFR 0.64 MG/DL (0.55-1.30); GLOMERULAR FILTRATION RATE > 60.0 (>58); GLUCOSE, FASTING 84 MG/DL (60-100); HDL CHOLESTEROL 52.5 MG/DL (>40); LDL CHOLESTEROL 90.9 MG/DL (<100); NON-HDL-C 103.5 MG/DL; POTASSIUM SERUM 4.3 MMOL/L (3.5-5.1); SODIUM LEVEL 137 MMOL/L (136-145); TOTAL PROTEIN 6.4 G/DL (5.7-8.2); TRIGLYCERIDES LEVEL 63 MG/DL (<150)
[2023-06-21 10:44] LABS: FREE T4 1.17 NG/DL (0.89-1.76); THYROID STIMULATING HORMONE 2.308 uIU/ML (0.55-4.78)
== END ==
LOC: M LAB 09:42
PROVIDERS: ATTEND Physician Assistant
DX: I10 Essential (primary) hypertension (principal); Z68.41 Body mass index [BMI] 40.0-44.9, adult; E78.00 Pure hypercholesterolemia, unspecified

== ENCOUNTER → 2024-01-12 | Outpatient (CLI) | payer OTHER ==
[~2024-01-12] MED LIST changes: +GABA-1172 PO; -GABA-282 PO; +ONDA-282 PO; -ONDA4TAB6 PO
[2024-01-12 12:55] LABS: INR 0.87; PARTIAL THROMBOPLASTIN TIME 30.4 SECONDS (24.8-34.2); PROTHROMBIN TIME 12.1 SECONDS (12.5-14.5)
[2024-01-12 13:16] LABS: ALBUMIN 3.4 G/DL (3.2-5.2); ALKALINE PHOSPHATASE 70 U/L (35-104); ALT/SGPT 32 U/L (7.0-40); AST/SGOT 18 U/L (<34); BASO % 0.5 % (0.0-1.0); BILIRUBIN,TOTAL 0.6 MG/DL (0.3-1.2); BLOOD UREA NITROGEN 14 MG/DL (9-23); CALCIUM LEVEL 8.9 MG/DL (8.5-10.1); CARBON DIOXIDE LEVEL 26 MMOL/L (20-31); CHLORIDE LEVEL 108 MMOL/L (98-107); EOS # 0.1 10^3/uL (0.0-0.5); EOS % 1.7 % (0.0-3.0); GLOMERULAR FILTRATION RATE > 60.0 (>58); GLUCOSE, FASTING 89 MG/DL (60-100); HEMATOCRIT 42.2 % (36.0-47.0); HEMOGLOBIN 13.9 g/dl (12.0-15.5); LYMPH # 1.8 10^3/uL (1.5-5.0); LYMPH % 23.2 % (24.0-44.0); MEAN CORPUSCULAR HEMOGLOBIN 29.1 pg (27.0-33.0); MEAN CORPUSCULAR HGB CONC 32.9 g/dl (32.0-36.5); MEAN CORPUSCULAR VOLUME 88.5 fl (80.0-96.0); MONO # 0.6 10^3/uL (0.0-0.8); MONO % 7.9 % (2.0-8.0); NEUTROPHILS % 66.2 % (36.0-66.0); PLATELET COUNT, AUTOMATED 280 10^3/uL (150-450); POTASSIUM SERUM 3.8 MMOL/L (3.5-5.1); RED BLOOD COUNT 4.77 10^6/uL (4.00-5.40); SODIUM LEVEL 138 MMOL/L (136-145); WHITE BLOOD COUNT 7.6 10^3/uL (4.0-10.0)
== END ==
LOC: M WUC 09:35
PROVIDERS: ATTEND Physician Assistant
DX: R23.8 Other skin changes (principal)

== ENCOUNTER → 2024-06-22 | Outpatient (CLI) | payer OTHER ==
[2024-06-22 12:52] LABS: BASO # 0.1 10^3/uL (0.0-0.2); BASO % 0.8 % (0.0-1.0); EOS # 0.2 10^3/uL (0.0-0.5); HEMATOCRIT 41.6 % (36.0-47.0); HEMOGLOBIN 13.8 g/dl (12.0-15.5); LYMPH # 2.1 10^3/uL (1.5-5.0); LYMPH % 26.1 % (24.0-44.0); MEAN CORPUSCULAR HEMOGLOBIN 29.3 pg (27.0-33.0); MEAN CORPUSCULAR HGB CONC 33.2 g/dl (32.0-36.5); MEAN CORPUSCULAR VOLUME 88.3 fl (80.0-96.0); MONO # 0.6 10^3/uL (0.0-0.8); MONO % 7.9 % (2.0-8.0); NEUTROPHILS # 4.9 10^3/uL (1.5-8.5); NEUTROPHILS % 62.8 % (36.0-66.0); PLATELET COUNT, AUTOMATED 294 10^3/uL (150-450); RED BLOOD COUNT 4.71 10^6/uL (4.00-5.40); WHITE BLOOD COUNT 7.9 10^3/uL (4.0-10.0)
[2024-06-22 12:57] LABS: ALBUMIN 3.3 G/DL (3.2-5.2); ALKALINE PHOSPHATASE 70 U/L (35-104); ALT/SGPT 22 U/L (7.0-40); AST/SGOT 17 U/L (<34); BILIRUBIN,TOTAL 0.5 MG/DL (0.3-1.2); BLOOD UREA NITROGEN 16 MG/DL (9-23); CALCIUM LEVEL 9.1 MG/DL (8.5-10.1); CARBON DIOXIDE LEVEL 28 MMOL/L (20-31); CHLORIDE LEVEL 103 MMOL/L (98-107); CHOLESTEROL LEVEL 232 MG/DL (<200); CREATININE FOR GFR 0.64 MG/DL (0.55-1.30); GLOMERULAR FILTRATION RATE > 90.0 (>58); GLUCOSE, FASTING 83 MG/DL (60-100); HDL CHOLESTEROL 72.5 MG/DL (>40); LDL CHOLESTEROL 137.3 MG/DL (<100); NON-HDL-C 159.5 MG/DL; POTASSIUM SERUM 3.5 MMOL/L (3.5-5.1); SODIUM LEVEL 140 MMOL/L (136-145); TOTAL PROTEIN 6.9 G/DL (5.7-8.2); TRIGLYCERIDES LEVEL 111 MG/DL (<150)
[2024-06-22 12:59] LABS: THYROID STIMULATING HORMONE 3.699 uIU/ML (0.55-4.78)
[2024-06-22 13:30] LABS: HEMOGLOBIN A1c 4.5 % (4.0-6.0)
== END ==
LOC: M WUC 09:28
PROVIDERS: ATTEND Physician Assistant
DX: E78.00 Pure hypercholesterolemia, unspecified (principal); I10 Essential (primary) hypertension; Z68.41 Body mass index [BMI] 40.0-44.9, adult

== ENCOUNTER → 2024-12-28 | Outpatient (CLI) | payer OTHER ==
[~2024-12-28] MED LIST changes: -IBUP-1022 PO; +IBUP600T42 PO
[2024-12-28 13:03] LABS: BASO # 0.1 10^3/uL (0.0-0.2); BASO % 0.8 % (0.0-1.0); EOS # 0.1 10^3/uL (0.0-0.5); EOS % 1.8 % (0.0-3.0); LYMPH # 1.7 10^3/uL (1.5-5.0); LYMPH % 23.6 % (24.0-44.0); MONO # 0.5 10^3/uL (0.0-0.8); MONO % 7.3 % (2.0-8.0); NEUTROPHILS # 4.7 10^3/uL (1.5-8.5); NEUTROPHILS % 66.2 % (36.0-66.0); PLATELET COUNT, AUTOMATED 155 10^3/uL (150-450)
[2024-12-28 13:07] LABS: TOTAL 25(OH) VITAMIN D 78.8 NG/ML (20.0-100.0)
[2024-12-28 13:08] LABS: FREE T4 1.17 NG/DL (0.89-1.76)
[2024-12-28 13:11] LABS: ALT/SGPT 27 U/L (7.0-40); AST/SGOT 25 U/L (<34); CALCIUM LEVEL 9.7 MG/DL (8.5-10.1); CARBON DIOXIDE LEVEL 25 MMOL/L (20-31); CHLORIDE LEVEL 106 MMOL/L (98-107); CHOLESTEROL LEVEL 167 MG/DL (<200); CHOLESTEROL RISK RATIO 2.87 (<5); CREATININE FOR GFR 0.66 MG/DL (0.55-1.30); GLOMERULAR FILTRATION RATE > 90.0 (>58); LDL CHOLESTEROL 90.4 MG/DL (<100); NON-HDL-C 109.0 MG/DL; POTASSIUM SERUM 4.4 MMOL/L (3.5-5.1); SODIUM LEVEL 141 MMOL/L (136-145); TRIGLYCERIDES LEVEL 93 MG/DL (<150)
[2024-12-28 13:29] LABS: ESTIMATED AVERAGE GLUCOSE 94.0 MG/DL (60-110)
== END ==
LOC: M WUC 10:03
PROVIDERS: ATTEND Physician Assistant
DX: I10 Essential (primary) hypertension (principal); Z68.41 Body mass index [BMI] 40.0-44.9, adult; E78.00 Pure hypercholesterolemia, unspecified; I72.8 Aneurysm of other specified arteries